=== PATIENT | female | born 1940 | race Two or more races ===

== ENCOUNTER 2024-08-24 21:35 | Inpatient (IN) | payer MEDICAID, SELFPAY ==
[2024-08-24 21:35] VITALS: BMI 26.6
[2024-08-24 22:24] VITALS: BP 168/76; PULSE 76; RESP 20; TEMP 36.6; O2SAT 96
--- NOTE | 2024-08-24 22:24 | PD.EDRME ---
Rapid Medical Screening Exam RME Arrival date/time: 08/24/24 21:35 Chief Complaint: Dizziness Time Seen by Provider: 08/24/24 21:53 Vital signs: Vital Signs Temperature 97.9 F 08/24/24 22:24 Pulse Rate 76 08/24/24 22:24 Respiratory Rate 20 08/24/24 22:24 Blood Pressure 168/76 H 08/24/24 22:24 Pulse Oximetry (%) 96 08/24/24 22:24 Oxygen Delivery Method Room Air 08/24/24 22:24 RME Narrative: 84-year-old female presents to the ED with left-sided headache, neck pain, dizziness, inability to walk due to the dizziness, as well as nausea and vomiting. I have greeted and performed a focused initial assessment of this patient. A comprehensive ED assessment and evaluation of the patient, analysis of all test results, and completion of the medical decision making process will be conducted by additional ED providers.
--- NOTE | 2024-08-24 22:37 | XR_ITS ---
Examination: PA lateral chest 2 views Technique: Upright PA lateral chest 2 views Exam date and time: August 24, 2024 at 1118 hrs. Indications: Left-sided headache neck pain dizziness today Findings: Opacity left base consistent with pneumonia Suspicious for small left pleural effusion Mild hyperexpansion Mild prominence cardiac contour Mild vascular congestion Moderate osteopenia Impression: Left base pneumonia Suspicious for small left pleural effusion
--- NOTE | 2024-08-24 22:37 | XR_ITS ---
Examination: CT brain head without contrast. 2-D sagittal coronal reconstructions Date and time of exam:August 24, 2024 11:05 PM Indications: Headache nausea vomiting beginning 2 days ago CTDI: vol (mGy):49 DLP: (mGycm):938 Technique: Multiple CT axial sections of the brain have been obtained, 5 mm slice thickness. Contrast has not been administered. 2-D sagittal, coronal reconstructions have been obtained Low dose protocols were performed. One or more of the following dose reduction techniques were used; automated exposure control, adjustment of the mA and/or KV according to patient size, use of iterative reconstruction technique. Findings: No significant ventricular enlargement. Low density in the right cerebellar hemisphere which appears old but clinical correlation advised Intra-axial or extra-axial hemorrhage density is not seen. No mass effect or midline shift Basal cisterns are not remarkable. Fourth ventricle is midline. Cranial vault intact. 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
--- NOTE | 2024-08-24 22:37 | EKG_ITS ---
[facility] Test Date: 2024-08-24 Pat Name: MARK KAUFMAN Department: Room: - Gender: Female Marketing Administrator: : 1940 Requested By: Miladys Guerrero Order Number: [id number] Reading MD: Miladys Guerrero Measurements Intervals Union Rate: 74 P: 51 VT: 192 QRS: 20 QRSD: 89 T: 51 QT: 405 QTc: 451 Interpretive Statements SINUS RHYTHM LOW QRS VOLTAGE IN PRECORDIAL LEADS [QRS DEFLECTION < 1.0 mV IN CHEST LEADS] Compared to ECG 11/19/2023 19:24:10 Low QRS voltage now present /store/S0/[id number]/ecg/[id number].pdf
[2024-08-24 23:23] LABS: Basophils % (Auto) 0 % (0-2.5); Eosinophils % (Auto) 0 % (0-10); Hematocrit 37.6 % (36.0-46.0); Hemoglobin 12.6 g/dL (12.0-16.0); Immature Granulocytes % (Auto) 1 % (0-0); Immature Granulocytes Auto 0.04 Thou/mm3 (0.00-0.00); Lymphocytes % (Auto) 12 % (10-50); Mean Corpuscular HGB Conc 33.5 g/dl (31.0-37.0); Mean Corpuscular Hemoglobin 29.1 pg (25.0-35.0); Mean Corpuscular Volume 87 fL (80-100); Monocytes # (Auto) 0.8 Thou/mm3 (0.0-0.8); Monocytes % (Auto) 10 % (0-12); Neutrophils # (Auto) 6.4 Thou/mm3 (1.8-7.7); Neutrophils % (Auto) 77 % (37-80); Nucleated Red Blood Cell % 0 /100 WBC (0); Platelet Count 237 Thou/mm3 (140-440); RDW Standard Deviation 41.8 fL (36.4-46.3); Red Blood Count 4.33 Miln/mm3 (4.00-5.20); White Blood Count 8.3 Thou/mm3 (3.6-11.0)
[2024-08-24 23:41] LABS: INR 1.1 (0.9-1.3); Partial Thromboplastin Time 26.6 Seconds (22.0-36.0); Prothrombin Time 11.6 Seconds (9.0-12.2)
[2024-08-24 23:47] LABS: Collection Type, Urine Clean Catch
[2024-08-24 23:50] LABS: B-Type Natriuretic Peptide 180 pg/mL (0-100)
[2024-08-25] VITALS (8 sets, daily range): BP systolic 145–179; BP diastolic 67–87; PULSE 77–93; RESP 16–20; TEMP 36.3–36.8; O2SAT 92–96
[2024-08-25 00:03] LABS: Bilirubin,Urine Negative (Negative); Blood,Urine Negative (Negative); Clarity,Urine Clear (Clear/Hazy); Color,Urine Lt-Yellow (Lt Yel-Yel); Glucose, Urine 3+ (Negative); Ketones,Urine Negative (Negative); Leukocyte Esterase,Urine Negative (Negative); Nitrite,Urine Negative (Negative); Protein,Urine Negative (Neg - Trace); RBC,Urine 2 /hpf (0-3); Specific Gravity,Urine 1.014 (1.001-1.035); Squamous Epithelial Cell,Urine < 1 /hpf (0-5); Urobilinogen,Urine Negative mg/dL (0.0-1.0); WBC,Urine 1 /hpf (0-5)
[2024-08-25 00:05] LABS: Alanine Aminotransferase 13 U/L (10-49); Albumin, Serum 4.6 gm/dL (3.4-4.8); Albumin/Globulin Ratio 1.8 (1.2-2.2); Alkaline Phosphatase 44 U/L (46-116); Anion Gap 8 (7-16); Aspartate Amino Transferase 18 U/L (0-34); BUN/Creatinine Ratio 10 Ratio (12-20); Blood Urea Nitrogen 6 mg/dL (9-23); Calcium 8.4 mg/dL (8.3-10.6); Calcium (Corrected) 8.4 mg/dL (8.5-10.1); Carbon Dioxide 24.2 mMol/L (20.0-31.0); Chloride 98 mMol/L (98-107); Creatinine (Component) 0.6 mg/dL (0.6-1.3); Estimated Creatinine Clearance 64.8 mL/min (>60); Globulin 2.5 gm/dL (2.3-3.5); Glucose 146 mg/dL (74-106); LDH (Lactate Dehydrogenase) 212 U/L (120-246); Magnesium 1.8 mg/dL (1.6-2.6); Osmolality,Calculated 261 (275-295); Potassium 3.9 mMol/L (3.4-5.1); Sodium 130 mMol/L (136-145); Total Protein 7.1 gm/dL (5.7-8.2); Troponin I < 0.020 ng/mL (0.0-0.045); eGFR > 60 See Note
--- NOTE | 2024-08-25 00:39 | PD.EDDIZZY ---
ED Dizzyness RME/HPI General Chief Complaint: Dizziness Stated Complaint: HEADACHE, DIZZINESS, N/V X 2DAYS Time Seen by Provider: 08/24/24 21:53 Arrival date/time: 08/24/24 21:35 Limitations: no limitations RME / HPI RME / HPI Narrative: 84-year-old female presents to the ED with left-sided headache, neck pain, dizziness, inability to walk due to the dizziness, as well as nausea and vomiting. I have greeted and performed a focused initial assessment of this patient. A comprehensive ED assessment and evaluation of the patient, analysis of all test results, and completion of the medical decision making process will be conducted by additional ED providers. Dr. An's Main ED Evaluation: 84yo female with a history of DM, HTN, HLD presents to the ED for a chief complaint of dizziness x 1 day. Patient states she started feeling dizzy at 2300 Saturday night after she showered. Patient states she went to sleep dizzy and woke up still having symptoms, reporting she is unable to ambulate normally, so she came in for evaluation. Daughter notes the patient has had difficulty talking. Patient endorses having 2-3 emetic episodes, a generalized headache, and bilateral lower extremity numbness below the knee. She denies any diarrhea, fever, chills or any other associated symptoms. Patient denies any history of similar symptoms. No known allergies. Related Data Home Medications ?Medication ?Instructions ?Recorded ?Confirmed lisinopril 40 mg tablet 40 mg PO QDAY 06/28/22 11/21/23 omeprazole 40 mg capsule,delayed 20 mg PO BID 06/28/22 11/21/23 release amlodipine 2.5 mg tablet 2.5 mg PO QDAY 11/21/23 11/21/23 aspirin 81 mg tablet,delayed 81 mg PO QDAY 11/21/23 11/21/23 release famotidine 20 mg tablet 20 mg PO QDAY 11/21/23 11/21/23 metformin 500 mg tablet 500 mg PO BID 11/21/23 11/21/23 metoprolol succinate 50 mg capsule 50 mg PO QDAY 11/21/23 11/21/23 sprinkle, ext. release 24 hr Allergies Allergy/AdvReac Type Severity Reaction Status Date / Time No Known Allergies Allergy Verified 11/19/23 17:17 Review of Systems Review of Systems Systems Reviewed: All systems reviewed, normal except as documented Past Medical History Past Medical History CARDIAC: Positive Hypercholesterolemia and Hypertension; Negative Cardiac Disorders or Congestive Heart Failure RESPIRATORY: Negative Chronic Obstructive Pulmonary Disease (COPD) or Asthma GASTROINTESTINAL: Positive Gastrointestinal Disorders (gastritis) GENITOURINARY: Negative Renal Disease ENT: Positive Cataracts ENDOCRINE: Positive Diabetes Mellitus Type 2; Negative Diabetes Mellitus Type 1 HEMATOLOGIC: Negative Sickle Cell Disease OTHER HISTORY: Negative Blood Transfusions Social History SMOKING STATUS: Never smoker SECOND HAND EXPOSURE: No SUBSTANCE USE: does not use ED Exam General Limitations: Present no limitations General appearance: Present alert and in no apparent distress Head Head exam: Present atraumatic Eye Eye exam: Present normal appearance, PERRL and EOMI ENT ENT exam: Present normal exam, normal oropharynx and mucous membranes moist Neck Neck exam: Present normal inspection, full ROM and trachea midline Chest Chest inspection: Present normal inspection and symmetric chest wall rise Respiratory Respiratory exam: Present normal lung sounds bilaterally Cardiovascular Cardiovascular exam: Present regular rate, normal rhythm and normal heart sounds Abdominal Exam Abdominal exam: Present soft and normal bowel sounds Extremities Exam Extremities exam: Present normal inspection and full ROM Back Exam Back exam: Present normal inspection and full ROM Neurological Exam Neurological exam: Present alert, oriented X3, CN II-XII intact and other (2 person assist when standing, appears to fall over towards her left side; normal seed pelleter bilaterally; no facial droop, no aphasia or dysphagia; no pronator drift) Expanded Neurological Exam Cerebellar function: Normal: finger to nose and heel to jackson Motor strength - LUE: 5/5 Motor strength - RUE: 5/5 Motor strength - LLE: 5/5 Motor strength - RLE: 5/5 Psychiatric Psychiatric exam: Present normal affect and normal mood Skin Skin exam: Present warm, dry, intact and normal color Course Course Course Narrative: CXR is ordered for determining the etiology of dizziness. Quality Measures none Orders Category Date Time Status Admit to Inpatient Status Routine Admission 08/25/24 01:38 Active Patient Condition Routine Admission 08/25/24 01:38 Ordered Activity as Tolerated Routine Care 08/25/24 01:38 Ordered EKG (ED ONLY) *Do not use* NOW Care 08/24/24 22:37 Completed NPO NOW Care 08/25/24 01:38 Active Notify provider NEEDED Care 08/25/24 01:38 Active Diet NPO (NOW) Diet 08/25/24 01:[address] head/brain wo con Stat Exams 08/24/24 22:37 Completed EKG (ED Only) Stat Exams 08/24/24 22:37 Draft XR chest 2V Stat Exams 08/24/24 22:37 Completed B-Type Natriuretic Peptide Stat Lab 08/24/24 22:54 Completed Basic Metabolic Panel AM DRAW Lab 08/25/24 05:00 Ordered Basic Metabolic Panel AM DRAW Lab 08/26/24 05:00 Ordered Basic Metabolic Panel AM DRAW Lab 08/27/24 05:00 Ordered CBC AM DRAW Lab 08/25/24 05:00 Ordered CBC AM DRAW Lab 08/26/24 05:00 Ordered CBC AM DRAW Lab 08/27/24 05:00 Ordered CBC Stat Lab 08/24/24 22:54 Completed Comprehensive Metabolic Panel Stat Lab 08/24/24 22:54 Completed LDH (Lactate Dehydrogenase) Stat Lab 08/24/24 22:54 Completed Magnesium Stat Lab 08/24/24 22:54 Completed Partial Thromboplastin Time Stat Lab 08/24/24 22:54 Completed Prothrombin Time with INR Stat Lab 08/24/24 22:54 Completed Troponin I Stat Lab 08/24/24 22:54 Completed Urinalysis Stat Lab 08/24/24 23:44 Completed Heparin Inj Med 08/25/24 06:00 Ordered 5,000 unit SC Q8HR Sodium Chloride 0.9% 1000 ml [Ns] 1,000 ml Med 08/25/24 01:45 Ordered IV 75 mls/hr Code Status Routine Oth 08/25/24 01:37 Ordered Vital Signs Vital signs: Vital Signs Temperature 97.9 F 08/24/24 22:24 Pulse Rate 76 08/24/24 22:24 Respiratory Rate 20 08/24/24 22:24 Blood Pressure 168/76 H 08/24/24 22:24 Pulse Oximetry (%) 96 08/24/24 22:24 Oxygen Delivery Method Room Air 08/24/24 22:24 Dizziness MDM Narrative MDM Narrative:: Scribe Attestation: 08/25/24 - Ramona Perez am scribing for and in the presence of Dr. An. 0135: Discussed case with Dr. Mckeon from Hospitalist service regarding admission. Discussed patients ED course, exam findings, labs, and radiology results. The Hospitalist agrees to accept the patient for admission. At this time, Teleneurology consult completed. Dr. Mckeon made aware. Patient data External records reviewed:: [facility] previous records (Per chart review, patient was admitted here on 11/19/23 for acute febrile illness.) Clinical information provided by:: patient Social determinants that could affect healthcare access:: none Patient has the following chronic illnesses:: DM, HTN, HLD How is presenting disease/condition affected by chronic disease/condition?: exacerbated by Evaluation data The following diagnostics were reviewed and interpreted by me:: lab results, radiology exam(s) and EKG tracing(s) Lab and/or radiology exams considered but not ordered:: none Interpretation Summary: CBC is normal, Sodium is 130, Troponin is normal, BNP is 180, UA is unremarkable, according to my interpretation. EKG done at 2249, NSR, rate of 74, low voltage, normal intervals, normal axis, no acute ST or T wave changes, no STEMI, according to my interpretation. [facility] Report Signed Patient: MARK KAUFMAN Record#: [id number] Birthdate: 1940 Age/Sex: 84 / F Location: [facility] Attending Dr: Ordering Physician: Miladys Granados PA-C Date of Service: 08/24/24 Procedure(s): XR chest 2V Accession Number(s): [id number] cc: Lobo Everett MD; Miladys Granados PA-C; Temporary Provider,ED ~ Examination: PA lateral chest 2 views Technique: Upright PA lateral chest 2 views Exam date and time: August 24, 2024 at 1118 hrs. Indications: Left-sided headache neck pain dizziness today Findings: Opacity left base consistent with pneumonia Suspicious for small left pleural effusion Mild hyperexpansion Mild prominence cardiac contour Mild vascular congestion Moderate osteopenia Impression: Left base pneumonia Suspicious for small left pleural effusion Dictated By: Lobo Everett MD Signed By: <Electronically signed by Lobo Everett MD in OV> 08/24/24 0859 [facility] Report Signed Patient: MARK KAUFMAN Record#: [id number] Birthdate: 1940 Age/Sex: 84 / F Location: [facility] Attending Dr: Ordering Physician: Miladys Granados PA-C Date of Service: 08/24/24 Procedure(s): CT head/brain wo con Accession Number(s): [id number] cc: Lobo Everett MD; Miladys Granados PA-C; Temporary Provider,ED ~ Examination: CT brain head without contrast. 2-D sagittal coronal reconstructions Date and time of exam:August 24, 2024 11:05 PM Indications: Headache nausea vomiting beginning 2 days ago CTDI: vol (mGy):49 DLP: (mGycm):938 Technique: Multiple CT axial sections of the brain have been obtained, 5 mm slice thickness. Contrast has not been administered. 2-D sagittal, coronal reconstructions have been obtained Low dose protocols were performed. One or more of the following dose reduction techniques were used; automated exposure control, adjustment of the mA and/or KV according to patient size, use of iterative reconstruction technique. Findings: No significant ventricular enlargement. Low density in the right cerebellar hemisphere which appears old but clinical correlation advised Intra-axial or extra-axial hemorrhage density is not seen. No mass effect or midline shift Basal cisterns are not remarkable. Fourth ventricle is midline. Cranial vault intact. 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 Dictated By: Lobo Everett MD Signed By: <Electronically signed by Lobo Everett MD in OV> 08/24/24 0816 Medications / Prescriptions Medications or Prescriptions considered but not ordered:: none Medication administrations:: Medication Administration History Heparin Sodium (Porcine) (Heparin Sod Inj 5000 Unit/Ml Vial) 5,000 unit SC Q8HR BOBBY Stop: 09/08/24 05:59 Sodium Chloride (Ns) 1,000 mls @ 75 mls/hr IV .[id number] BOBBY Stop: 09/24/24 01:44 see above Consultations Consultation(s) initiated? (list below): Yes Diagnosis Dizziness Differential Diagnosis: other (CVA, TIA, vertigo, dehydration, electrolyte abnormality) Most likely diagnosis given after review of the tests above:: see clinical impression below Admission Indicated Admission indicated?: indicated Admission Request Was there a request for admission?: Yes Admission Attestation Admission request attestation: Discussed case with [] from Hospitalist service regarding admission. Discussed patients ED course, exam findings, labs, and radiology results. The Hospitalist [agrees,declines] to accept the patient for admission. Disposition Plan Disposition Plan: Admit Critical Care Time Critical Care Time Critical Care Time: Yes Total Critical Care Time (min.): 35 Attestation: The high probability of sudden, clinically significant deterioration in the patient?s condition required the highest level of my preparedness to intervene urgently. The services I provided to this patient were to treat and/or prevent clinically significant deterioration. Services included the following: chart data review, reviewing nursing notes and/or old charts, documentation time, client service consultant collaboration regarding findings and treatment options, medication orders and management, direct patient care, vital sign assessments and ordering, interpreting and reviewing diagnostic studies and lab tests. Aggregate critical care time includes only time during which I was engaged in work directly related to the patient?s care, as described above, whether at bedside or elsewhere in the Emergency Department. It did not include time spent performing other reported procedures or the services of residents, students, nurses or physician assistants. Discharge Plan Plan Patient Disposition: Admit Acute Care w/in Hospital Disposition Comment: Admitted to Dr. Mckeon Prescriptions/Referrals Prescriptions/Med Rec: No Action omeprazole 40 mg capsule,delayed release(DR/EC) 20 mg PO BID lisinopril 40 mg tablet 40 mg PO QDAY metformin 500 mg Tablet 500 mg PO BID amlodipine 2.5 mg Tablet 2.5 mg PO QDAY aspirin 81 mg Tablet,Delayed Release (Dr/Ec) 81 mg PO QDAY famotidine 20 mg Tablet 20 mg PO QDAY metoprolol succinate 50 mg Capsule,Sprinkle,Er 24hr 50 mg PO QDAY Referrals: Temporary Provider,ED [Primary Care Provider] - In 1 week Problem List Clinical Impression: Dizziness, Inability to walk, Ataxia Patient/Caregiver Discharge Instructions Print Language: Maori Stand Alone Forms: Kathi Award Info., Patient Portal Info Letter
--- NOTE | 2024-08-25 01:27 | PD.TNEURO ---
Tele Neuro Consultation Consultation Date 08/25/24 Most Recent Vital Signs Last Vital Signs Temp 98 F 08/25/24 00:34 Pulse 86 08/25/24 00:34 Resp 18 08/25/24 00:34 BP 179/77 H 08/25/24 00:34 Pulse Ox 96 08/25/24 00:34 O2 Del Method Room Air 08/25/24 00:34 Laboratory-Coagulation Panel PT 11.6 Seconds (9.0-12.2) 08/24/24 22:54 INR 1.1 (0.9-1.3) 08/24/24 22:54 APTT 26.6 Seconds (22.0-36.0) 08/24/24 22:54 Consultation Narrative [facility] TeleNeurology Consult Services Stat Consult Patient Name:???Gloria Taylor Date of :???1940 Identification Number:??? Date of Service:???08/25/2024 00:46:55 Diagnosis:?R51.9 - Headache, unspecified Impression 84 year old female with PMH of HTN, DM HLD presents with new onset severe headache, dizziness and gait instability since yesterday CT head showing chronic ischemic infarct. I would recommend ischemic stroke workup with MRI of the brain without contrast, 2D echocardiogram with bubble study to evaluate for PFO, vessel imaging with CTA head and neck telemetry for 24 hours to detect A-fib, start Lipitor 80 mg p.o. and check fasting LDL and A1c Further management recommendations after stroke workup is complete. Recommendations: Our recommendations are outlined below. Diagnostic Studies :MRI head without contrast CTA head and neck with contrast Laboratory Studies :Lipid panel I orderedHemoglobin A1c TSH Nursing Recommendations :IV Fluids, avoid dextrose containing fluids, Maintain euglycemia Neuro checks q4 hrs x 24 hrs and then per shift Head of bed 30 degrees Continue with Telemetry Consultations :Recommend Speech therapy if failed dysphagia screen Physical therapy/Occupational therapy DVT Prophylaxis :Choice of Primary Team Disposition :Neurology will follow Advanced Imaging: Advanced Imaging Deferred because: Non-disabling symptoms as verified by the patient; no cortical signs so not consistent with LVO Metrics: Dispatch Time: 08/25/2024 00:44:00 Callback Response Time: 08/25/2024 00:47:10 Primary Provider Notified of Diagnostic Impression and Management Plan on: 08/25/2024 01:17:31 CT HEAD: As Per Radiologist CT Head Showed No Acute Hemorrhage or Acute Core Infarct Chief Complaint: headache History of Present Illness:Patient is a 84 year old Female. 84F Complaint: Pt has a headache with dizziness lkwt: 2300 imaging: CT H Yestrday she had a spell of dizziness and went to another ER. She continues to feel dizzy today and has a severe headache, global, feels unsteady. She also feels numbness in both legs. Past Medical History: ?Hypertension Medications: No Anticoagulant use? No Antiplatelet use Reviewed EMR for current medications Allergies:? Reviewed Social History: Drug Use: No Family History: There is no family history of premature cerebrovascular disease pertinent to this consultation ROS : 14 Points Review of Systems was performed and was negative except mentioned in HPI. Past Surgical History: There Is No Surgical History Contributory To Today?s Visit Examination: BP(156/78),?Pulse(81), 1A: Level of Consciousness - Alert; keenly responsive?+ 0 1B: Ask Month and Age - Both Questions Right?+ 0 1C: Blink Eyes & Squeeze Hands - Performs Both Tasks?+ 0 2: Test Horizontal Extraocular Movements - Normal?+ 0 3: Test Visual De [place] Santos - No Visual Loss?+ 0 4: Test Facial Palsy (Use Grimace if Obtunded) - Normal symmetry?+ 0 5A: Test Left Arm Motor Drift - No Drift for 10 Seconds?+ 0 5B: Test Right Arm Motor Drift - No Drift for 10 Seconds?+ 0 6A: Test Left Leg Motor Drift - No Drift for 5 Seconds?+ 0 6B: Test Right Leg Motor Drift - No Drift for 5 Seconds?+ 0 7: Test Limb Ataxia (FNF/Heel-Elkins) - No Ataxia?+ 0 8: Test Sensation - Normal; No sensory loss?+ 0 9: Test Language/Aphasia - Normal; No aphasia?+ 0 10: Test Dysarthria - Normal?+ 0 11: Test Extinction/Inattention - No abnormality?+ 0 NIHSS Score:?0 Spoke with :?ER team This consult was conducted in real time using interactive audio and video technology. Patient was informed of the technology being used for this visit and agreed to proceed. Patient located in hospital and provider located at home/office setting. Patient is being evaluated for possible acute neurologic impairment and high probability of imminent or life - threatening deterioration.I spent total of 35 minutes providing care to this patient, including time for face to face visit via telemedicine, review of medical records, imaging studies and discussion of findings with providers, the patient and / or family. Dr Kuldeep Kelly [facility] For Inpatient follow-up with [facility] physician please call [facility] at . As we are not an outpatient service for any post hospital discharge needs please contact the hospital for assistance. If you have any questions for the [facility] physicians or need to reconsult for clinical or diagnostic changes please contact us via [facility] at .
--- NOTE | 2024-08-25 01:39 | XR_ITS ---
Examination: MRI brain without intravenous contrast Date and time of exam: August 25, 2024 1023 hours INDICATIONS: Pain involving the back of the head beginning 2 days ago COMPARISON: June 28, 2022 Technique: Multiple axial and sagittal images of the brain obtained. Siemens high-resolution 1.5 Loulou short bore scanners utilized. Sagittal sections, T1-weighted, TR 500, TE 14, are performed. Axial sections proton-density and T2-weighted have been obtained. Inversion recovery axial images, TR 9, 260, TE 111, TI 2500. Diffusion weighted images, axial sections, TR 4800, TE 128, B value 1000 Axial sections, ADC map, TR 4800, TE 128 Findings: Enlargement of the sella turcica is not present. The optic chiasm and infundibular are not remarkable. Prepontine and interpeduncular cisterns are not enlarged. There is no localized enlargement of the medulla or gabriel. Fourth ventricle and cerebellar tonsils appear normal in position. No subacute area of hemorrhage density is seen. Mass in the cerebellopontine angle region is not evident. Globes symmetrical. Orbital musculature including medial lateral rectus muscles do not exhibit abnormality. Diffusion-weighted images demonstrate large focus restricted diffusion in the right cerebellar hemisphere and right vermis Increased white matter signal right cerebellar hemisphere Mass effect upon the ventricular system is not identified. Impression: Large acute infarcts in the right cerebellar hemisphere
--- NOTE | 2024-08-25 01:40 | XR_ITS ---
Examination: Carotid arterial duplex scan, ultrasound. Date and time of exam: August 25, 2024 0415 hrs. Indications: Episodes of weakness and dizziness beginning yesterday Technique: Multiple sonographic images have been obtained of the carotid arteries and vertebral arteries, B-mode/grayscale imaging and Doppler spectral analysis and color flow Peak systolic and diastolic velocities have been recorded. Systolic diastolic ratios have been calculated. Findings: Right peak systolic velocities: Distal internal carotid artery peak systolic velocity is 0.7 M/sec Proximal internal carotid artery peak systolic velocity is 0.6 M/sec Carotid bifurcation peak systolic velocity is 0.8 M/sec External carotid artery peak systolic velocity is 0.7 M/sec Vertebral artery flow is antegrade. Left peak systolic velocities: Distal internal carotid artery peak systolic velocity is 0.5 M/sec Proximal internal carotid artery peak systolic velocity is 0.8 M/sec Carotid bifurcation peak systolic velocity is 0.7 M/sec External carotid artery peak systolic velocity is 0.7 M/sec Vertebral artery flow is antegrade Doppler waveform analysis demonstrates no spectral broadening Impression: Right internal carotid artery demonstrates 0-10% stenosis. Left internal carotid artery demonstrates 0-10% stenosis.
--- NOTE | 2024-08-25 02:20 | ESHP_ITS ---
Documentation for date of: 08/25/24 HPI History of Present Illness Chief complaint: Dizziness History of present illness: The patient is a 84-year-old female with a previous medical history of hypertension, diabetes, hyperlipidemia, GERD who came in on 08/24/24 due to dizziness, headache, inability to ambulate on her own, inability to stand. Symptoms started on Saturday at approximately 23:00 PM Saturday when she was taking a shower. Patient went to sleep and woke up with symptoms. Patient vomited 2-3 times and reports headache. She denies falls and traumas to the head. ED course: Initial vitals blood pressure 168/76, heart rate 76, febrile, saturating well on room air. 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 Labs: WBC count 8.3, hemoglobin 12.6, platelets 237, INR 1.1, sodium 130, potassium 3.9, BUN 6, creatinine 0.6, glucose 146, troponin I negative, BNP 180. UA was negative for signs of UTI, 3+ glucose. EKG showed sinus rhythm. Chest x-ray showed left base opacity, mild vascular congestion. Patient was admitted for stroke rule out. Social history: not a smoker, does not have a history of drug use Home medications: amlodipine, aspirine, famotidine, lisinopril, metformin, metoprolol, omeprazole. Review of Systems Review of Systems Systems Reviewed: All systems reviewed, normal except as documented Past Medical History Past Medical History CARDIAC: Positive Hypercholesterolemia and Hypertension; Negative Cardiac Disorders or Congestive Heart Failure RESPIRATORY: Negative Chronic Obstructive Pulmonary Disease (COPD) or Asthma GASTROINTESTINAL: Positive Gastrointestinal Disorders (gastritis) GENITOURINARY: Negative Renal Disease ENT: Positive Cataracts ENDOCRINE: Positive Diabetes Mellitus Type 2; Negative Diabetes Mellitus Type 1 HEMATOLOGIC: Negative Sickle Cell Disease OTHER HISTORY: Negative Blood Transfusions Social History SMOKING STATUS: Never smoker SECOND HAND EXPOSURE: No SUBSTANCE USE: does not use Exam Vital Signs Temp Pulse Resp BP Pulse Ox O2 Del Method 98 F 86 18 179/77 H 96 Room Air 08/25/24 00:34 08/25/24 00:34 08/25/24 00:34 08/25/24 00:34 08/25/24 00:34 08/25/24 00:34 Narrative Exam Physical Exam General: Awake and in no acute distress. Sleeping in the bed, easily arousable. HEENT: Normocephalic, atraumatic, mucous membranes moist. Heart: Regular rate and rhythm, no murmurs. Lungs: Clear to auscultation with no wheezing or crackles. Abdomen: Soft, nondistended, nontender, positive bowel sounds. ?No guarding or rebound tenderness. Neurologic: Alert and oriented x3, no gross neurological deficit, and patient able to move all 4 extremities. Extremities: No edema. Skin: No rash or ecchymoses. Results: Labs 08/24/24 22:54 08/24/24 22:54 Labs: Short CBC 08/24/24 Range/Units 22:54 WBC 8.3 (3.6-11.0) Thou/mm3 Hgb 12.6 (12.0-16.0) g/dL Hct 37.6 (36.0-46.0) % Plt Count 237 (140-440) Thou/mm3 BMP 08/24/24 22:54 Sodium 130 L Potassium 3.9 Chloride 98 Carbon Dioxide 24.2 BUN 6 L Creatinine 0.6 Glucose 146 H Calcium 8.4 Cardiac Enzymes 08/24/24 Range/Units 22:54 Troponin I < 0.020 (0.0-0.045) ng/mL Liver Function 08/24/24 Range/Units 22:54 Total Bilirubin 1.0 (0.3-1.2) mg/dL AST 18 (0-34) U/L ALT 13 (10-49) U/L Alkaline Phosphatase 44 L (46-116) U/L Albumin 4.6 (3.4-4.8) gm/dL Urine 08/24/24 Range/Units 23:44 Urine Color Lt-Yellow (Lt Yel-Yel) Urine Clarity Clear (Clear/Hazy) Urine pH 7.0 (5.0-7.0) Ur Specific [place] 1.014 (1.001-1.035) Urine Protein Negative (Neg - Trace) Urine Glucose (UA) 3+ A (Negative) Quality Measures Quality Measures VTE prophylaxis Advance care planning discussed with:: child Medications Home Medications and Allergies Home Medications ?Medication ?Instructions ?Recorded ?Confirmed ?Type lisinopril 40 mg tablet 40 mg PO QDAY 06/28/2208/25 History omeprazole 40 mg capsule,delayed 20 mg PO BID 06/28/22 08/25/24 History release amlodipine 2.5 mg tablet 2.5 mg PO QDAY 11/21/2308/11 History aspirin 81 mg tablet,delayed 81 mg PO QDAY 11/21/23 History release famotidine 20 mg tablet 20 mg PO QDAY 11/21/2308/25 History metformin 500 mg tablet 500 mg PO BID 11/21/2308/25 History metoprolol succinate 50 mg capsule 50 mg PO QDAY 11/2008/25/24 History sprinkle, ext. release 24 hr Allergies Allergy/AdvReac Type Severity Reaction Status Date / Time No Known Allergies Allergy Verified 11/19/23 17:17 Visit Medications Aspirin (Aspirin Ec 81 Mg Tabec) 81 mg PO QDAY [facility] Stop: 09/24/24 08:59 Atorvastatin Calcium (Atorvastatin Calcium 20 Mg Tablet) 80 mg PO HS [facility] Stop: 09/24/24 20:59 Dextrose (Dextrose 50%-Water Inj 50 Ml Syringe) 25 ml IV Q15MIN PRN PRN Reason: BG 50-70 responsive npo pt Stop: 09/24/24 01:40 Dextrose (Dextrose 50%-Water Inj 50 Ml Syringe) 50 ml IV Q15MIN PRN PRN Reason: BG <50 OR BG <70 & pt unresponsive Stop: 09/24/24 01:40 Glucagon (Glucagon Inj 1 Mg Vial) 1 mg IM Q15MIN PRN PRN Reason: BG <70, and no IV access Heparin Sodium (Porcine) (Heparin Sod Inj 5000 Unit/Ml Vial) 5,000 unit SC Q8HR [facility] Stop: 09/08/24 05:59 Sodium Chloride (Ns) 1,000 mls @ 75 mls/hr IV .[id number] [facility] Stop: 09/24/24 01:44 Insulin Human Lispro (Insulin Lispro (Admelog) 1 Unit/0.01 Ml Unit) 0 unit SC [facility]; Protocol Stop: 09/24/24 07:29 Lisinopril (Lisinopril 20 Mg Tablet) 40 mg PO QDAY [facility] Stop: 09/24/24 08:59 Assessment & Plan Plan The patient is a 84-year-old female with a previous medical history of hypertension, diabetes, hyperlipidemia, GERD who came in on 08/24/24 due to dizziness, headache, inability to ambulate on her own, inability to stand. Patient was admitted for stroke rule out. #Stroke rule out Patient is out of the time window for thrombolysis. Reports feeling dizzy and headache. Symptoms could be indicative of vertebrobasilar stroke. CT head showed multiple right cerebellar hemisphere infarcts. 08/25/24: Initial NIHSS is 0. Plan: - MRI brain - Speech therapy eval - Physical therapy eval - Swallow screen - Atorvastatin 80 mg qday - Maintain euglycemia and euthermia - Neurology consult - A1c, TSH, lipid panel - Neuro checks q4hr - Telemetry - BP control - Npo until passes swallow screen - Echo bubble study - Carotid doppler US - Normal saline at 75 ml/hr #Hypertension #Hyperlipidemia Plan: - Resumed home lisinopril - Atorvastatin 80 mg qday #Type 2 diabetes Plan: - Insulin sliding scale - Hypoglycemia protocol #History of GERD - Pantoprazole 40 mg qday Health maintenance: FEN: NPO until passes swallow screen DVT prophylaxis: Heparin sc GI prophylaxis: Pantoprazole 40 mg Dispo: Telemetry CODE STATUS: Full code Plan of care discussed with attending Dr. Mckeon. Irene Crawford MD, PGY 1. Attending Provider Attestation/Addendum Pt was evaluated and plan formulated together with the housestaff team. I have reviewed the residents note above and agree with most of its content. Please refer to the residents note for additional details.
[2024-08-25] MEDS: SODIUM CHLORIDE 0.9% 1000 ML 1,000 ML 75 ML IV ×2 (03:08→20:45)
[2024-08-25 05:54] LABS: Basophils % (Auto) 0 % (0-2.5); Eosinophils # (Auto) 0.1 Thou/mm3 (0.0-0.5); Eosinophils % (Auto) 1 % (0-10); Hematocrit 34.9 % (36.0-46.0); Hemoglobin 11.9 g/dL (12.0-16.0); Immature Granulocytes % (Auto) 0 % (0-0); Immature Granulocytes Auto 0.02 Thou/mm3 (0.00-0.00); Lymphocytes # (Auto) 1.5 Thou/mm3 (1.0-4.8); Lymphocytes % (Auto) 20 % (10-50); Mean Corpuscular HGB Conc 34.1 g/dl (31.0-37.0); Mean Corpuscular Hemoglobin 28.9 pg (25.0-35.0); Mean Corpuscular Volume 85 fL (80-100); Monocytes # (Auto) 0.7 Thou/mm3 (0.0-0.8); Monocytes % (Auto) 9 % (0-12); Neutrophils # (Auto) 5.2 Thou/mm3 (1.8-7.7); Neutrophils % (Auto) 70 % (37-80); Nucleated Red Blood Cell % 0 /100 WBC (0); Platelet Count 226 Thou/mm3 (140-440); RDW Standard Deviation 41.5 fL (36.4-46.3); Red Blood Count 4.12 Miln/mm3 (4.00-5.20); White Blood Count 7.4 Thou/mm3 (3.6-11.0)
[2024-08-25] MEDS: HEPARIN SOD INJ 5000 UNIT/ML VIAL SC (05:56)
[2024-08-25 06:16] LABS: Glucose Estimated Average 131 mg/dL (80-131); Hemoglobin A1C 6.2 % Hgb (4.8-6.0)
[2024-08-25 06:19] LABS: Anion Gap 8 (7-16); BUN/Creatinine Ratio 10 Ratio (12-20); Blood Urea Nitrogen 5 mg/dL (9-23); Calcium 8.4 mg/dL (8.3-10.6); Carbon Dioxide 23.8 mMol/L (20.0-31.0); Cardiac Risk Estimate 3.3 RATIO (3.7-5.6); Chloride 101 mMol/L (98-107); Cholesterol 187 mg/dL (132-200); Creatinine (Component) 0.5 mg/dL (0.6-1.3); Estimated Creatinine Clearance 69.7 mL/min (>60); Glucose 127 mg/dL (74-106); HDL Cholesterol 57 mg/dL (40-60); LDL Cholesterol,Calculated 117 mg/dL (0-130); Osmolality,Calculated 265 (275-295); Potassium 3.6 mMol/L (3.4-5.1); Sodium 133 mMol/L (136-145); Triglycerides 67 mg/dL (30-150); eGFR > 60 See Note
--- NOTE | 2024-08-25 06:26 | PRELIM_ITS ---
Ultrasound carotid. August 25, 2024 at 0415 hours Clinical history: Cerebrovascular accident. Comparison: No prior study is available for comparison. Findings: Sawyer scale, color flow and spectral Doppler evaluation of the carotid and vertebral arteries were performed bilaterally. Right: The common carotid, external/internal carotid and vertebral arteries demonstrate normal color flow and spectral profile. There are no focal stenotic plaques or vessel wall calcification. Normal antegrade flow is noted in the vertebral artery. Left: The common carotid, external/internal carotid and vertebral arteries demonstrate normal color flow and spectral profile. There are no focal stenotic plaques or vessel wall calcification. Normal antegrade flow is noted in the vertebral artery. Doppler Profile: Vessel Right (cm/s) Left (cm/s) ICA (max) 0.96 0.78 CCA (distal) 0.60 0.70 ICA/CCA Ratio 1.6 1.1 Impression: No hemodynamically significant carotid artery stenosis bilaterally. Normal antegrade flow in the vertebral arteries bilaterally. Report Electronically Signed By: Tejal Joseph 08/25/2024 6:25:18 AM [EST]
--- NOTE | 2024-08-25 07:52 | XR_ITS ---
Examination: CTA carotids with intravenous contrast CTA brain, head with intravenous contrast. 2-D sagittal, coronal reconstructions. 3-D reconstructions. Exam date and time: August 25, 2024 1050 hours INDICATIONS: Dizziness episodes beginning yesterday, acute infarcts in the right cerebellar hemisphere on brain MRI this morning CTDI: vol (mGy) 18.7 DLP: (mGycm) 423 Technique: Multiple CTA axial brain, head carotid images post intravenous contrast injection 75 cc, [id number]. 2-D sagittal, coronal reconstructions. 3-D reconstructions, 3-D post processing including vascular maximum intensity projection images. Low dose protocols were performed. One or more of the following dose reduction techniques were used; automated exposure control, adjustment of the mA and/or KV according to patient size, use of iterative reconstruction technique. Findings: No significant common carotid carotid bifurcation or internal carotid artery stenoses Codominant vertebral arteries with no critical stenoses Intracranial vertebral arteries basilar artery fill 80% plus stenosis right posterior cerebral artery junction P1 P2 segments Middle cerebral anterior cerebral arteries demonstrate no large vessel occlusions IMPRESSION: No significant neck arterial stenoses No cerebral large vessel arterial occlusions 80% plus stenosis right posterior cerebral artery, junction P1 P2 segments
[2024-08-25] MEDS: Lisinopril 20 MG TABLET 40 MG PO (08:01)
[2024-08-25] MEDS: ASPIRIN EC 81 MG TABEC PO (08:01)
[2024-08-25] MEDS: PANTOPRAZOLE INJ 40 MG VIAL IV (08:01)
--- NOTE | 2024-08-25 09:38 | PCS.ST ---
assisted [employer] for swallow eval
--- NOTE | 2024-08-25 11:38 | ESCONSULT_ITS ---
HPI Data of Consult Requesting Physician: Zachery aTlbot DO Admitting Provider: Brian Mckeon MD Attending Provider: Zachery Talbot DO Primary Care Provider: Jan Valadez PA-C Consult Narrative History of present illness: 84-year-old female with a previous medical history of hypertension, diabetes, hyperlipidemia, GERD who was admitted to [facility] for stroke rule out. Neurology was consulted. Per patient daughter at the bedside she stated that symptoms started on Saturday night around 11 PM after she took a shower and started to present dizziness, headache and inability to ambulate on her own, inability to stand. She denies falls and traumas to the head. She endorses chronic tinnitus bilateral. The daughter stated that she was brought up to [facility] and they prescribed antiemetics Tylenol and PPIs and was discharged home from the ER and they decided to come to [facility] because of severe nausea vomiting and dizziness that did not resolve. ED course: Initial vitals blood pressure 168/76, heart rate 76, Stroke alert was called, NIHSS was 0, head Labs: WBC count 8.3, hemoglobin 12.6, platelets 237, INR 1.1, sodium 130, potassium 3.9, BUN 6, creatinine 0.6, glucose 146. Imaging: Head CT showed old upper infarct in the right cerebral large hemisphere, negative for acute hemorrhage, midline shift or mass effect. 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 Carotid Doppler ultrasound right and left internal carotids with 0-10% stenosis. Brain MRI showed large acute infarct in the right cerebellar hemisphere. ROS: Tinnitus, dizziness, nausea, vomiting Past medical history: Hypertension, GERD, diabetes Past surgical history: Markable Family history: Unremarkable Social history: Used to smoke occasionally when she was younger and used to drink alcohol socially Travel history: None Allergies: No known allergies cc:: cc: Zachery Talbot DO Review of Systems Review of Systems Systems Reviewed: All systems reviewed, normal except as documented Exam Vital Signs Temp Pulse Resp BP Pulse Ox O2 Del Method 97.4 F 79 17 145/67 H 95 Room Air 08/25/24 08:00 08/25/24 08:01 08/25/24 08:00 08/25/24 08:01 08/25/24 08:00 08/25/24 08:00 Narrative Exam General: No acute distress, well appearing, alert, interactive. HEENT: NC/AT, PERRL, EOMI, Good conjugate gaze, moist mucous membranes, oropharynx clear. Neck: Supple, No masses, No adenopathy, carotid pulse 2+ bilaterally without bruits, No JVD, normal range of motion. Chest: Symmetrical, atraumatic, and with equal expansion , Nontender on palpation no deformity and no crepitus. CVS: S1 and S2 present, Regular rate and rhythm, No murmurs, rubs or gallops perceived during auscultation. Lungs: Normal respiratory effort, CTAB, no wheezing, rhonchi or rales perceived during auscultation, No intercostal or subcostal retraction. Abdomen : Soft, no tenderness to palpation, no guarding ,no rebound, +BS, no organomegaly. Extremities: No edema, warm well perfused, normal tone and ROM, strength and sensation intact, cap refill less than 2, +2 dp equal bilaterally, able to move all 4 extremities spontaneously. Skin: Intact, no rashes, no lesions, no erythema or jaundice noted Neuro: AOx3, cranial nerves II through XII intact, reflex symmetric and sensation normal, no focal neurologic deficits noted, no dysmetria noted in [id number] test, gait: Not tested GCS 15, able to move all 4 extremities spontaneously, strength on bilateral upper lower extremities 5/5 Psych: Appropriate mood and affect. Results Labs 08/27/24 04:21 08/26/24 05:10 Labs: Short CBC 08/24/24 08/25/24 Range/Units 22:54 04:45 WBC 8.3 7.4 (3.6-11.0) Thou/mm3 Hgb 12.6 11.9 L (12.0-16.0) g/dL Hct 37.6 34.9 L (36.0-46.0) % Plt Count 237 226 (140-440) Thou/mm3 BMP 08/24/24 08/25/24 22:54 04:45 Sodium 130 L 133 L Potassium 3.9 3.6 Chloride 98 101 Carbon Dioxide 24.2 23.8 BUN 6 L 5 L Creatinine 0.6 0.5 L Glucose 146 H 127 H Calcium 8.4 8.4 Cardiac Enzymes 08/24/24 Range/Units 22:54 Troponin I < 0.020 (0.0-0.045) ng/mL Liver Function 08/24/24 Range/Units 22:54 Total Bilirubin 1.0 (0.3-1.2) mg/dL AST 18 (0-34) U/L ALT 13 (10-49) U/L Alkaline Phosphatase 44 L (46-116) U/L Albumin 4.6 (3.4-4.8) gm/dL Urine 08/24/24 Range/Units 23:44 Urine Color Lt-Yellow (Lt Yel-Yel) Urine Clarity Clear (Clear/Hazy) Urine pH 7.0 (5.0-7.0) Ur Specific [place] 1.014 (1.001-1.035) Urine Protein Negative (Neg - Trace) Urine Glucose (UA) 3+ A (Negative) Quality Measures Quality Measures VTE prophylaxis Advance care planning discussed with:: child Medications Home Medications and Allergies Home Medications ?Medication ?Instructions ?Recorded ?Confirmed ?Type lisinopril 40 mg tablet 40 mg PO QDAY 06/28/2208/25 History omeprazole 40 mg capsule,delayed 20 mg PO BID 06/28/22 08/25/24 History release amlodipine 2.5 mg tablet 2.5 mg PO QDAY 11/21/2308/11 History aspirin 81 mg tablet,delayed 81 mg PO QDAY 11/21/23 History release famotidine 20 mg tablet 20 mg PO QDAY 11/21/2308/25 History metformin 500 mg tablet 500 mg PO BID 11/21/2308/25 History metoprolol succinate 50 mg capsule 50 mg PO QDAY 11/2008/25/24 History sprinkle, ext. release 24 hr Allergies Allergy/AdvReac Type Severity Reaction Status Date / Time No Known Allergies Allergy Verified 11/19/23 17:17 Visit Medications Aspirin (Aspirin Ec 81 Mg Tabec) 81 mg PO QDAY [facility] Stop: 09/24/24 08:59 Last Admin: 08/25/24 08:01 Dose: 81 mg Atorvastatin Calcium (Atorvastatin Calcium 20 Mg Tablet) 80 mg PO HS [facility] Stop: 09/24/24 20:59 Dextrose (Dextrose 50%-Water Inj 50 Ml Syringe) 25 ml IV Q15MIN PRN PRN Reason: BG 50-70 responsive npo pt Stop: 09/24/24 01:40 Dextrose (Dextrose 50%-Water Inj 50 Ml Syringe) 50 ml IV Q15MIN PRN PRN Reason: BG <50 OR BG <70 & pt unresponsive Stop: 09/24/24 01:40 Glucagon (Glucagon Inj 1 Mg Vial) 1 mg IM Q15MIN PRN PRN Reason: BG <70, and no IV access Heparin Sodium (Porcine) (Heparin Sod Inj 5000 Unit/Ml Vial) 5,000 unit SC Q12HR [facility] Stop: 09/08/24 20:59 Sodium Chloride (Ns) 1,000 mls @ 75 mls/hr IV .[id number] [facility] Stop: 09/24/24 01:44 Last Admin: 08/25/24 03:08 Dose: 75 mls/hr Insulin Human Lispro (Insulin Lispro (Admelog) 1 Unit/0.01 Ml Unit) 0 unit SC [facility]; Protocol Stop: 09/24/24 07:29 Last Admin: 08/25/24 11:18 Dose: Not Given Lisinopril (Lisinopril 20 Mg Tablet) 40 mg PO QDAY [facility] Stop: 09/24/24 08:59 Last Admin: 08/25/24 08:01 Dose: 40 mg Pantoprazole Sodium (Pantoprazole Inj 40 Mg Vial) 40 mg IV QDAY [facility] Stop: 09/24/24 08:59 Last Admin: 08/25/24 08:01 Dose: 40 mg Polyethylene Glycol (Polyethylene Glycol 17 Gm Packet) 17 gm PO QDAY PRN PRN Reason: constipation Stop: 09/24/24 08:59 Discontinued Medications Heparin Sodium (Porcine) (Heparin Sod Inj 5000 Unit/Ml Vial) 5,000 unit SC Q8HR [facility] Stop: 09/08/24 05:59 Last Admin: 08/25/24 05:56 Dose: 5,000 unit Assessment & Plan Plan #Acute large right cerebellar infarct Patient endorses dizziness and ataxia associated to nausea and vomiting upon presentation. Head CT showed old upper infarct in the right cerebral large hemisphere, negative for acute hemorrhage, midline shift or mass effect. 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 Carotid Doppler ultrasound right and left internal carotids with 0-10% stenosis. Brain MRI showed large acute infarct in the right cerebellar hemisphere. Plan: - Continue atorvastatin 80 mg qday ? Continue aspirin 81 mg p.o. daily ? Started Plavix 75 mg p.o. daily - Pending echo bubble study ? Blood pressure control ? Referred to physical therapy #Hypertension #Hyperlipidemia #Type 2 diabetes #History of GERD ? Continue management per primary team Patient discussed with my attending Dr Alina Thompson MD PGY-3 Disclaimer: Despite multiple revisions, due to the dictation software being used, the document bellow may not be free of grammatical errors including phonetic/typographic errors. However, this does not deter from our commitment to providing health care in the patient's best interest in mind. Attending Provider Attestation/Addendum I personally have seen and examined the patient at the bedside and I agree with resident's findings, assessment and plan of care. Her gait ataxia should improve with inpatient rehab. Stable for discharge to rehab on aspirin Plavix and statin
--- NOTE | 2024-08-25 12:54 | ESPR_ITS ---
Documentation for date of: 08/25/24 Subjective Subjective Interval history: Patient examined at bedside. She still complains of positional dizziness. Patient had gone to [facility] last weekend with same symptoms. She was not admitted and discharged with supportive care. MRI brain Large acute infarcts in the right cerebellar hemisphere. CTA head neck showed 80% plus stenosis right posterior cerebral artery, junction P1 P2 segments Patient passed swallow eval. PT eval, neuro recs, echo are pending. She does not have any new neuro deficitis. Continue with aspirin 81, atorvastatin 80mg, lisinopril 40mg daily. Exam Vital Signs Temp Pulse Resp BP Pulse Ox O2 Del Method 98.2 F 82 18 157/77 H 93 L Room Air 08/25/24 12:00 08/25/24 12:00 08/25/24 12:00 08/25/24 12:00 08/25/24 12:08/25/24 12:00 Narrative Exam General: Elderly female, easily arousable, no distress HEENT: Normocephalic, atraumatic, mucous membranes moist, facial movements in tact. Heart: Regular rate and rhythm, no murmurs. Lungs: Clear to auscultation with no wheezing or crackles. Abdomen: Soft, nondistended, nontender, positive bowel sounds. ?No guarding or rebound tenderness. Neurologic: Alert and oriented x3, no new gross neurological deficit, and patient able to move all 4 extremities. Extremities: No edema. Skin: No rash or ecchymoses. Objective Labs 08/25/24 04:45 08/25/24 04:45 Labs: Laboratory Results - last 24 hr 08/24/24 08/24/24 08/25/24 22:54 23:44 04:45 WBC 8.3 7.4 RBC 4.33 4.12 Hgb 12.6 11.9 L Hct 37.6 34.9 L MCV 87 85 MCH 29.1 28.9 MCHC 33.5 34.1 RDW Std Deviation 41.8 41.5 Plt Count 237 226 Neut % (Auto) 77 70 Lymph % (Auto) 12 20 [place] % (Auto) 10 9 Eos % (Auto) 0 1 Baso % (Auto) 0 0 Neut # (Auto) 6.4 5.2 Lymph # (Auto) 1.0 1.5 [place] # (Auto) 0.8 0.7 Eos # (Auto) 0.0 0.1 Baso # (Auto) 0.0 0.0 Immature Gran # (Auto) 0.04 H 0.02 H Absolute Nucleated RBC 0.00 0.00 Immature Gran % 1 H 0 Nucleated RBC % 0 0 PT 11.6 INR 1.1 APTT 26.6 Sodium 130 L 133 L Potassium 3.9 3.6 Chloride 98 101 Carbon Dioxide 24.2 23.8 Anion Gap 8 8 BUN 6 L 5 L Creatinine 0.6 0.5 L Estim Creat Clear Calc 64.8 69.7 eGFR > 60 > 60 BUN/Creatinine Ratio 10 L 10 L Glucose [address] Glu mg/dL 131 Hemoglobin A1c 6.2 H Calculated Osmolality 261 L 265 L Calcium 8.4 8.4 Corrected Calcium 8.4 L Magnesium 1.8 Total Bilirubin 1.0 AST 18 ALT 13 Alkaline Phosphatase 44 L Lactate Dehydrogenase 212 Troponin I < 0.020 B-Natriuretic Peptide 180 H Total Protein 7.1 Albumin 4.6 Globulin 2.5 Albumin/Globulin Ratio 1.8 Triglycerides 67 Cholesterol 187 LDL Cholesterol, Calc 117 HDL Cholesterol 57 Cholesterol/HDL Ratio 3.3 L Ur Collection Type Clean Catch Urine Color Lt-Yellow Urine Clarity Clear Urine pH 7.0 Ur Specific [place] 1.014 Urine Protein Negative Urine Glucose (UA) 3+ A Urine Ketones Negative Urine Blood Negative Urine Nitrite Negative Urine Bilirubin Negative Urine Urobilinogen (Auto) Negative Ur Leukocyte Esterase Negative Urine RBC 2 Urine WBC 1 Ur Squamous Epith Cells < 1 Urine Bacteria None Quality Measures Quality Measures VTE prophylaxis Advance care planning discussed with:: patient Assessment & Plan Assessment Current Active Medications: Generic Name Dose Route Start Last Admin Trade Name Lalitha PRN Reason Stop Dose Admin Aspirin 81 mg 08/25/24 09:00 08/25/24 08:01 Aspirin Ec 81 Mg Tabec PO 09/24/24 08:59 81 mg QDAY BOBBY Administration Atorvastatin Calcium 80 mg 08/25/24 21:00 Atorvastatin Calcium 20 Mg Tablet PO 09/24/24 20:59 HS BOBBY Dextrose 25 ml 08/25/24 01:41 Dextrose 50%-Water Inj 50 Ml Syringe IV 09/24/24 01:40 Q15MIN PRN BG 50-70 responsive npo pt Dextrose 50 ml 08/25/24 01:41 Dextrose 50%-Water Inj 50 Ml Syringe IV 09/24/24 01:40 Q15MIN PRN BG <50 OR BG <70 & pt unresponsive Glucagon 1 mg 08/25/24 01:41 Glucagon Inj 1 Mg Vial IM Q15MIN PRN BG <70, and no IV access Heparin Sodium (Porcine) 5,000 unit 08/25/24 21:00 Heparin Sod Inj 5000 Unit/Ml Vial SC 09/08/24 20:59 Q12HR BOBBY Sodium Chloride 1,000 mls @ 75 mls/hr 08/25/24 01:45 08/25/24 03:08 Ns IV 09/24/24 01:44 75 mls/hr .[id number] BOBBY Administration Insulin Human Lispro 0 unit 08/25/24 07:30 08/25/24 11:18 Insulin Lispro (Admelog) 1 Unit/0.01 Ml Unit SC 09/24/24 07:29 Not Given AC BOBBY Protocol Lisinopril 40 mg 08/25/24 09:00 08/25/24 08:01 Lisinopril 20 Mg Tablet PO 09/24/24 08:59 40 mg QDAY BOBBY Administration Pantoprazole Sodium 40 mg 08/25/24 09:00 08/25/24 08:01 Pantoprazole Inj 40 Mg Vial IV 09/24/24 08:59 40 mg QDAY BOBBY Administration Polyethylene Glycol 17 gm 08/25/24 03:16 Polyethylene Glycol 17 Gm Packet PO 09/24/24 08:59 QDAY PRN constipation Plan Gloria Taylor is 84-year-old female with a previous medical history of hypertension, diabetes, hyperlipidemia, GERD who came in on 08/24/24 due to dizziness, headache, inability to ambulate on her own, inability to stand. Patient was admitted for stroke rule out. #Acute CVA Patient is out of the time window for thrombolysis. Reports feeling dizzy and headache. Symptoms could be indicative of vertebrobasilar stroke. CT head showed multiple right cerebellar hemisphere infarcts. 08/25/24: Initial NIHSS is 0. MRI brain Large acute infarcts in the right cerebellar hemisphere. CTA head neck showed 80% plus stenosis right posterior cerebral artery, junction P1 P2 segments A1c 6.2, Lipid panel normal -neuro consulted: started Plavix 75 mg daily -permissive hypertension until 2am -passed swallow eval - Physical therapy eval pending - Atorvastatin 80 mg qday - Maintain euglycemia and euthermia - TSH pending - Neuro checks q4hr - Telemetry -echo with bubble pending - Normal saline at 75 ml/hr -patient to follow up with vascular surgery after discharge for evaluation of possible endarterectomy #Hypertension #Hyperlipidemia Plan: - Resumed home lisinopril - Atorvastatin 80 mg qday #Non-insulin dependent Type 2 diabetes, well controlled A1c 6.2, patient takes metformin 500mg BID -blood sugar checks AC - Insulin sliding scale - Hypoglycemia protocol #History of GERD - Pantoprazole 40 mg qday Health maintenance: FEN: low carb diet DVT prophylaxis: Heparin sc GI prophylaxis: Pantoprazole 40 mg Dispo: Telemetry CODE STATUS: Full code The patient's management plan was discussed with my attending physician Dr. Talbot. Rosa Flynn, PGY-1
[2024-08-25] MEDS: CLOPIDOGREL BISULFATE 75 MG TABLET PO (18:05)
[2024-08-25] MEDS: ATORVASTATIN CALCIUM 20 MG TABLET 80 MG PO (20:40)
[2024-08-26] VITALS (10 sets, daily range): BP systolic 144–169; BP diastolic 63–89; PULSE 73–95; RESP 16–20; TEMP 36.3–36.6; O2SAT 93–97; BMI 25.1
--- NOTE | 2024-08-26 01:40 | ECHO_ITS ---
Transthoracic Echo Report Ht (in): 64 Wt (lb): 141 Exam Location: Echo Lab Status: Inpatient Stator Plate Washer: Martine Salazar Indications: Procedure Performed: BP: 150 / 80 HR: 90 Technical Quality: Technically difficult study MEASUREMENTS (Male / Female) Normal Values 2D ECHO LV Diastolic Diameter PLAX 4.9 cm 4.2 - 5.9 / 3.9 - 5.3 cm LV Systolic Diameter PLAX 3.5 cm IVS Diastolic Thickness 1.1 cm 0.6 - 1.0 / 0.6 - 0.9 cm LVPW Diastolic Thickness 1.0 cm 0.6 - 1.0 / 0.6 - 0.9 cm LV Relative Wall Thickness 0.4 LVOT Diameter 2.4 cm Aortic Root Diameter 2.7 cm LA Volume Index 31.4 cm?/m? 16 - 28 cm?/m? Ascending Aorta Diameter 2.8 cm DOPPLER AV Peak Velocity 142.0 cm/s AV Peak Gradient 8.1 mmHg AV Mean Gradient 4.0 mmHg AV Velocity Time Integral 29.1 cm LVOT Peak Velocity 91.6 cm/s LVOT Peak Gradient 3.4 mmHg LVOT Velocity Time Integral 20.7 cm LVOT Cardiac Index 4932.9 cm?/min?m? AV Area Cont Eq vti 3.2 cm? AV Area Cont Eq pk 2.9 cm? MV Area PHT 4.8 cm? MR Peak Velocity 555.5 cm/s MR Peak Gradient 123.4 mmHg Mitral E Point Velocity 51.4 cm/s Mitral A Point Velocity 73.2 cm/s Mitral E to A Ratio 0.7 LV E' Lateral Velocity 7.5 cm/s Mitral E to LV E' Lateral Ratio 6.8 LV E' Septal Velocity 6.5 cm/s Mitral E to LV E' Septal Ratio 7.9 TR Peak Velocity 288.5 cm/s TR Peak Gradient 33.3 mmHg PV Peak Velocity 125.0 cm/s PV Peak Gradient 6.3 mmHg FINDINGS Left Ventricle Normal left ventricular size, wall thickness, systolic function with no obvious regional wall motion abnormalities. Normal left ventricular diastolic filling pattern for age. The ejection fraction is visually estimated at 50-55%. There is grade I diastolic dysfunction. Right Ventricle The right ventricle is normal in size and systolic function. The estimated right ventricular sysotolic pressure, 41mmHg. RAP 5. Left Atrium The left atrium is normal by two-dimensional, color flow and Doppler imaging with no structural abnormalities, no thrombus formation present. Right Atrium The right atrium is normal by two-dimensional imaging, color flow and Doppler imaging with no structural abnormalities, no thrombus formation present. Atrial Septum The interatrial septum appears normal with no evidence of a shunt. Aorta The aorta is normal by two-dimensional, color flow and Doppler interrogation. Mitral Valve Trace to mild mitral regurgitation. Aortic Valve The aortic valve is trileaflet and normal by two-dimensional, color flow and Doppler interrogation. There is no significant aortic valve regurgitation. Tricuspid Valve There is mild tricuspid valve regurgitation. Pulmonic Valve The pulmonic valve is not well visualized. There is no significant pulmonic valve regurgitation. Vessels The pulmonary artery appears normal. The inferior vena cava pulmonary and hepatic veins appear normal. Pericardium The pericardium is normal by two-dimensional imaging. There is no significant pericardial effusion. CONCLUSIONS Indication: CVA with bubble study Bubble study negative for any PFO or ASD. TTE suboptimal and consider FIONA if high clinical index of suspicion. Normal LV size and function. Esmtimated EF 50-55%. Grade I diastolic dysfunction. RA is normal in size and systolic function. Estimated RVSP 41mmHg. Mildly elevated.. Trace to mild MR. Mild TR. Mild aortic valve sclerosis without stenosis. Mello Bailon (Electronically Signed) Final Date: 26 August 2024 20:07
[2024-08-26 05:56] LABS: Basophils % (Auto) 1 % (0-2.5); Eosinophils # (Auto) 0.1 Thou/mm3 (0.0-0.5); Eosinophils % (Auto) 2 % (0-10); Hematocrit 37.2 % (36.0-46.0); Hemoglobin 12.3 g/dL (12.0-16.0); Immature Granulocytes % (Auto) 0 % (0-0); Immature Granulocytes Auto 0.02 Thou/mm3 (0.00-0.00); Lymphocytes # (Auto) 1.7 Thou/mm3 (1.0-4.8); Lymphocytes % (Auto) 29 % (10-50); Mean Corpuscular HGB Conc 33.1 g/dl (31.0-37.0); Mean Corpuscular Hemoglobin 28.9 pg (25.0-35.0); Mean Corpuscular Volume 88 fL (80-100); Monocytes # (Auto) 0.9 Thou/mm3 (0.0-0.8); Monocytes % (Auto) 15 % (0-12); Neutrophils # (Auto) 3.2 Thou/mm3 (1.8-7.7); Neutrophils % (Auto) 53 % (37-80); Nucleated Red Blood Cell % 0 /100 WBC (0); Platelet Count 223 Thou/mm3 (140-440); RDW Standard Deviation 44.2 fL (36.4-46.3); Red Blood Count 4.25 Miln/mm3 (4.00-5.20)
[2024-08-26 06:27] LABS: Anion Gap 9 (7-16); BUN/Creatinine Ratio 15 Ratio (12-20); Blood Urea Nitrogen 9 mg/dL (9-23); Calcium 8.4 mg/dL (8.3-10.6); Carbon Dioxide 24.7 mMol/L (20.0-31.0); Chloride 109 mMol/L (98-107); Creatinine (Component) 0.6 mg/dL (0.6-1.3); Estimated Creatinine Clearance 58.1 mL/min (>60); Glucose 116 mg/dL (74-106); Osmolality,Calculated 284 (275-295); Potassium 3.4 mMol/L (3.4-5.1); Sodium 143 mMol/L (136-145); Thyroid Stimulating Hormone 1.35 uIU/mL (0.55-4.78); eGFR > 60 See Note
[2024-08-26] MEDS: PANTOPRAZOLE INJ 40 MG VIAL IV (08:15)
[2024-08-26] MEDS: ASPIRIN EC 81 MG TABEC PO (08:15)
[2024-08-26] MEDS: CLOPIDOGREL BISULFATE 75 MG TABLET PO (08:16)
[2024-08-26] MEDS: Lisinopril 20 MG TABLET 40 MG PO (08:16)
--- NOTE | 2024-08-26 09:11 | ESPR_ITS ---
Documentation for date of: 08/26/24 Subjective Subjective Interval history: No overnight acute events This morning at the bedside family members at her room patient endorsed that she is feeling sick and that she does not feel well otherwise denies any episodes of nausea, vomiting dizziness or any other associated symptoms. Patient family members were updated about the MRI findings that were consistent right cerebellar stroke. Per neurology standpoint patient can be discharged with Plavix, aspirin and atorvastatin follow-up in the neurology 2 weeks after discharge as well as continue physical therapy, per case management family members want to decide between SNF discharge versus home but they have not decided yet. Exam Vital Signs Temp Pulse Resp BP Pulse Ox O2 Del Method 97.6 F 78 17 152/78 H 96 Room Air 08/26/24 07:40 08/26/24 08:16 08/26/24 07:40 08/26/24 08:16 08/26/24 07:40 08/26/24 07:40 Narrative Exam General: No acute distress, well appearing, alert, interactive. HEENT: NC/AT, PERRL, EOMI, Good conjugate gaze, moist mucous membranes, oropharynx clear. Neck: Supple, No masses, No adenopathy, carotid pulse 2+ bilaterally without bruits, No JVD, normal range of motion. Chest: Symmetrical, atraumatic, and with equal expansion , Nontender on palpation no deformity and no crepitus. CVS: S1 and S2 present, Regular rate and rhythm, No murmurs, rubs or gallops perceived during auscultation. Lungs: Normal respiratory effort, CTAB, no wheezing, rhonchi or rales perceived during auscultation, No intercostal or subcostal retraction. Abdomen : Soft, no tenderness to palpation, no guarding ,no rebound, +BS, no organomegaly. Extremities: No edema, warm well perfused, normal tone and ROM, strength and sensation intact, cap refill less than 2, +2 dp equal bilaterally, able to move all 4 extremities spontaneously. Skin: Intact, no rashes, no lesions, no erythema or jaundice noted Neuro: AOx3, cranial nerves II through XII intact, reflex symmetric and sensation normal, no focal neurologic deficits noted, no dysmetria noted in [id number] test, gait GCS 15, able to move all 4 extremities spontaneously, strength on bilateral upper lower extremities 5/5 Psych: Appropriate mood and affect. Objective Labs 08/26/24 05:10 08/26/24 05:10 Labs: Laboratory Results - last 24 hr 08/26/24 05:10 WBC 6.0 RBC 4.25 Hgb 12.3 Hct 37.2 MCV 88 MCH 28.9 MCHC 33.1 RDW Std Deviation 44.2 Plt Count 223 Neut % (Auto) 53 Lymph % (Auto) 29 [place] % (Auto) 15 H Eos % (Auto) 2 Baso % (Auto) 1 Neut # (Auto) 3.2 Lymph # (Auto) 1.7 [place] # (Auto) 0.9 H Eos # (Auto) 0.1 Baso # (Auto) 0.0 Immature Gran # (Auto) 0.02 H Absolute Nucleated RBC 0.00 Immature Gran % 0 Nucleated RBC % 0 Sodium 143 D Potassium 3.4 Chloride 109 H Carbon Dioxide 24.7 Anion Gap 9 BUN 9 Creatinine 0.6 Estim Creat Clear Calc 58.1 L eGFR > 60 BUN/Creatinine Ratio 15 Glucose 116 H Calculated Osmolality 284 Calcium 8.4 TSH 1.35 Quality Measures Quality Measures VTE prophylaxis Advance care planning discussed with:: patient and child Assessment & Plan Assessment Current Active Medications: Generic Name Dose Route Start Last Admin Trade Name Freq PRN Reason Stop Dose Admin Aspirin 81 mg 08/25/24 09:00 08/26/24 08:15 Aspirin Ec 81 Mg Tabec PO 09/24/24 08:59 81 mg QDAY BOBBY Administration Atorvastatin Calcium 80 mg 08/25/24 21:00 08/25/24 20:40 Atorvastatin Calcium 20 Mg Tablet PO 09/24/24 20:59 80 mg HS BOBBY Administration Clopidogrel Bisulfate 75 mg 08/25/24 18:00 08/26/24 08:16 Clopidogrel Bisulfate 75 Mg Tablet PO 09/24/24 17:59 75 mg QDAY BOBBY Administration Dextrose 25 ml 08/25/24 01:41 Dextrose 50%-Water Inj 50 Ml Syringe IV 09/24/24 01:40 Q15MIN PRN BG 50-70 responsive npo pt Dextrose 50 ml 08/25/24 01:41 Dextrose 50%-Water Inj 50 Ml Syringe IV 09/24/24 01:40 Q15MIN PRN BG <50 OR BG <70 & pt unresponsive Glucagon 1 mg 08/25/24 01:41 Glucagon Inj 1 Mg Vial IM Q15MIN PRN BG <70, and no IV access Sodium Chloride 1,000 mls @ 75 mls/hr 08/25/24 01:45 08/25/24 20:45 Ns IV 09/24/24 01:44 75 mls/hr .[id number] BOBBY Administration Insulin Human Lispro 0 unit 08/25/24 07:30 08/26/24 08:13 Insulin Lispro (Admelog) 1 Unit/0.01 Ml Unit SC 09/24/24 07:29 Not Given AC [facility] Protocol Lisinopril 40 mg 08/25/24 09:00 08/26/24 08:16 Lisinopril 20 Mg Tablet PO 09/24/24 08:59 40 mg QDAY BOBBY Administration Pantoprazole Sodium 40 mg 08/25/24 09:00 08/26/24 08:15 Pantoprazole Inj 40 Mg Vial IV 09/24/24 08:59 40 mg QDAY BOBBY Administration Polyethylene Glycol 17 gm 08/25/24 03:16 Polyethylene Glycol 17 Gm Packet PO 09/24/24 08:59 QDAY PRN constipation Plan #Acute large right cerebellar infarct Patient endorses dizziness and ataxia associated to nausea and vomiting upon presentation. Head CT showed old upper infarct in the right cerebral large hemisphere, negative for acute hemorrhage, midline shift or mass effect. 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 Carotid Doppler ultrasound right and left internal carotids with 0-10% stenosis. Brain MRI showed large acute infarct in the right cerebellar hemisphere. Per case management family members want to decide possible SNF but they have not taken a decision yet Plan: Per neurology standpoint patient can be discharged after echo with bubble study - Continue atorvastatin 80 mg qday ? Continue aspirin 81 mg p.o. daily ? Continue Plavix 75 mg p.o. daily - Pending echo bubble study ? Blood pressure control ? Continue physical therapy #Hypertension #Hyperlipidemia #Type 2 diabetes #History of GERD ? Continue management per primary team Patient discussed with my attending Dr Alina Thompson MD PGY-3 Disclaimer: Despite multiple revisions, due to the dictation software being used, the document bellow may not be free of grammatical errors including phonetic/typographic errors. However, this does not deter from our commitment to providing health care in the patient's best interest in mind. Attending Provider Attestation/Addendum I personally have seen and examined the patient at the bedside and agreed with resident's findings, assessment and plan of care. Patient is going to benefit from inpatient rehab for better balance and coordination and to continue with aspirin, Plavix and statin.
[2024-08-26] MEDS: POTASSIUM CHLORIDE 20 mEq TABCR 40 MEQ PO (09:36)
--- NOTE | 2024-08-26 14:55 | PC.SS ---
Gloria Taylor is a 84-year-old female admitted to Med-Surg for Dizziness. RITA conducted bedside contact with the patient to complete initial assessment and to discuss discharge planning, Marce SALINAS utilized as site interpreter.? Patients dtr Juana Jimenez [phone] confirmed demographic information. She identifies herself as the pts surrogate decision maker. Patient resides at home with her son. Juana states she is typically able to complete all ADL?s independently, no need for any source of DME. Pts PCP is Dr. Antoine (sees him every 3 months) and her pharmacy of choice is [facility] on [address]. DC options discussed, they wish for pt to return home, refused SNF but open to HH if needed. Pts fam will provide transportation upon DC. No further intervention required at this time, social media editor would be available to address any further concerns. DC Plan: Home (HH) (no preference) Contact: Juana Jimenez [phone] PCP: KAE Valadez
--- NOTE | 2024-08-26 15:12 | PD.RESPRO ---
Documentation for date of: 08/26/24 Subjective Subjective Interval history: Patient examined at bedside. No acute events overnight. Patient complains of some headache with dizziness. Echo with bubble study pending for workup of acute CVA. Neurology was consulted and started patient on Plavix. Should continue with atorvastatin and aspirin daily. Used to return home with home health. Anticipate discharge next 24 hours. Exam Vital Signs Temp Pulse Resp BP Pulse Ox O2 Del Method 97.9 F 90 18 150/80 H 97 Room Air 08/26/24 11:27 08/26/24 12:00 08/26/24 11:27 08/26/24 11:27 08/26/24 11:27 08/26/24 11:27 Narrative Exam General: Elderly female, easily arousable, no distress HEENT: Normocephalic, atraumatic, mucous membranes moist, facial movements in tact. Heart: Regular rate and rhythm, no murmurs. Lungs: Clear to auscultation with no wheezing or crackles. Abdomen: Soft, nondistended, nontender, positive bowel sounds. ?No guarding or rebound tenderness. Neurologic: Alert and oriented x3, no new gross neurological deficit, and patient able to move all 4 extremities. Strength on bilateral upper lower extremities 5/5 Extremities: No edema. Skin: No rash or ecchymoses. Objective Labs 08/27/24 04:21 08/27/24 04:21 Labs: Laboratory Results - last 24 hr 08/26/24 05:10 WBC 6.0 RBC 4.25 Hgb 12.3 Hct 37.2 MCV 88 MCH 28.9 MCHC 33.1 RDW Std Deviation 44.2 Plt Count 223 Neut % (Auto) 53 Lymph % (Auto) 29 [place] % (Auto) 15 H Eos % (Auto) 2 Baso % (Auto) 1 Neut # (Auto) 3.2 Lymph # (Auto) 1.7 [place] # (Auto) 0.9 H Eos # (Auto) 0.1 Baso # (Auto) 0.0 Immature Gran # (Auto) 0.02 H Absolute Nucleated RBC 0.00 Immature Gran % 0 Nucleated RBC % 0 Sodium 143 D Potassium 3.4 Chloride 109 H Carbon Dioxide 24.7 Anion Gap 9 BUN 9 Creatinine 0.6 Estim Creat Clear Calc 58.1 L eGFR > 60 BUN/Creatinine Ratio 15 Glucose 116 H Calculated Osmolality 284 Calcium 8.4 TSH 1.35 Quality Measures Quality Measures VTE prophylaxis Advance care planning discussed with:: patient Assessment & Plan Assessment Current Active Medications: Generic Name Dose Route Start Last Admin Trade Name Freq PRN Reason Stop Dose Admin Aspirin 81 mg 08/25/24 09:00 08/26/24 08:15 Aspirin Ec 81 Mg Tabec PO 09/24/24 08:59 81 mg QDAY BOBBY Administration Atorvastatin Calcium 80 mg 08/25/24 21:00 08/25/24 20:40 Atorvastatin Calcium 20 Mg Tablet PO 09/24/24 20:59 80 mg HS BOBBY Administration Clopidogrel Bisulfate 75 mg 08/25/24 18:00 08/26/24 08:16 Clopidogrel Bisulfate 75 Mg Tablet PO 09/24/24 17:59 75 mg QDAY BOBBY Administration Dextrose 25 ml 08/25/24 01:41 Dextrose 50%-Water Inj 50 Ml Syringe IV 09/24/24 01:40 Q15MIN PRN BG 50-70 responsive npo pt Dextrose 50 ml 08/25/24 01:41 Dextrose 50%-Water Inj 50 Ml Syringe IV 09/24/24 01:40 Q15MIN PRN BG <50 OR BG <70 & pt unresponsive Glucagon 1 mg 08/25/24 01:41 Glucagon Inj 1 Mg Vial IM Q15MIN PRN BG <70, and no IV access Insulin Human Lispro 0 unit 08/25/24 07:30 08/26/24 12:07 Insulin Lispro (Admelog) 1 Unit/0.01 Ml Unit SC 09/24/24 07:29 Not Given AC [facility] Protocol Lisinopril 40 mg 08/25/24 09:00 08/26/24 08:16 Lisinopril 20 Mg Tablet PO 09/24/24 08:59 40 mg QDAY BOBBY Administration Pantoprazole Sodium 40 mg 08/25/24 09:00 08/26/24 08:15 Pantoprazole Inj 40 Mg Vial IV 09/24/24 08:59 40 mg QDAY BOBBY Administration Polyethylene Glycol 17 gm 08/25/24 03:16 Polyethylene Glycol 17 Gm Packet PO 09/24/24 08:59 QDAY PRN constipation Plan Gloria Taylor is 84-year-old female with a previous medical history of hypertension, diabetes, hyperlipidemia, GERD who came in on 08/24/24 due to dizziness, headache, inability to ambulate on her own, inability to stand. Patient was admitted for stroke rule out. #Acute CVA Patient is out of the time window for thrombolysis. Reports feeling dizzy and headache. Symptoms could be indicative of vertebrobasilar stroke. CT head showed multiple right cerebellar hemisphere infarcts. 08/25/24: Initial NIHSS is 0. MRI brain Large acute infarcts in the right cerebellar hemisphere. CTA head neck showed 80% plus stenosis right posterior cerebral artery, junction P1 P2 segments A1c 6.2, Lipid panel normal, TSH 1.35 -neuro consulted: started Plavix 75 mg daily -passed swallow eval - Physical therapy eval: patient to continue PT with HH. - Atorvastatin 80 mg qday - Neuro checks q4hr - Telemetry -echo with bubble pending - Normal saline at 75 ml/hr -patient to follow up with vascular surgery after discharge for evaluation of possible endarterectomy #Hypertension #Hyperlipidemia Plan: - Resumed home lisinopril - Atorvastatin 80 mg qday #Non-insulin dependent Type 2 diabetes, well controlled A1c 6.2, patient takes metformin 500mg BID -blood sugar checks AC - Insulin sliding scale - Hypoglycemia protocol #History of GERD - Pantoprazole 40 mg qday Health maintenance: FEN: low carb diet DVT prophylaxis: Heparin sc GI prophylaxis: Pantoprazole 40 mg Dispo: Telemetry, dc pending echo with bubble CODE STATUS: Full code The patient's management plan was discussed with my attending physician Dr. Talbot. Rosa Flynn, PGY-1 I discussed with and supervised the marketing pr intern physician who took care of this patient. I personally saw and examined the patient and discussed the assessment and plan with the entire medicine team, including my attending Dr. Dahiana Flores. I agree with the assessment and plan as documented above. Patient admitted for stroke workup. Was found to have a right large acute cerebellar infarct. Patient pending echo with bubble study to r/o PFO. Per neuro reccs will continue plavix, ASA and atorvastatin. Patient family disccused discharge and would like home with home health. Antione Vasques M.D. Internal Medicine PGY-3 Attending Provider Attestation/Addendum I have discussed and was present for the essential components of the history, physical examination, diagnosis, and treatment plan with the resident. I agree with the patient's care as documented by the resident and amended herein by me. Juan Talbot DO. Patient seen and evaluated this AM. No acute events overnight, vital signs stable, patient afebrile, MRI demonstrated large left cerebellar infarct, echo still pending, per patient's family, patient will go home with home health physical therapy, will continue aspirin statin and Plavix for now. Neurology consulted, appreciate recommendations. Likely discharge after echo read has resulted Although this document has been carefully reviewed, there may still be some phonetic and other typographical errors. These errors are purely grammatical due to imperfections in the software program and should not be construed in any way to compromise the substance of the patient's medical care during this visit.
--- NOTE | 2024-08-26 15:19 | PC.SS ---
Rounding: Pending ECHO and will DC home with HH when DC ready
[2024-08-26] MEDS: ACETAMINOPHEN 500 MG TABLET 1000 MG PO (16:31)
[2024-08-26] MEDS: ATORVASTATIN CALCIUM 20 MG TABLET 80 MG PO (20:43)
[2024-08-27] VITALS (11 sets, daily range): BP systolic 128–168; BP diastolic 62–87; PULSE 74–92; RESP 16–20; TEMP 36.3–37; O2SAT 95–97; BMI 25.1; BMI 25.0
[2024-08-27 06:09] LABS: Basophils # (Auto) 0.1 Thou/mm3 (0.0-0.2); Basophils % (Auto) 1 % (0-2.5); Eosinophils # (Auto) 0.3 Thou/mm3 (0.0-0.5); Eosinophils % (Auto) 5 % (0-10); Hematocrit 39.2 % (36.0-46.0); Immature Granulocytes % (Auto) 0 % (0-0); Immature Granulocytes Auto 0.02 Thou/mm3 (0.00-0.00); Lymphocytes # (Auto) 1.7 Thou/mm3 (1.0-4.8); Lymphocytes % (Auto) 25 % (10-50); Mean Corpuscular HGB Conc 33.2 g/dl (31.0-37.0); Mean Corpuscular Hemoglobin 28.8 pg (25.0-35.0); Mean Corpuscular Volume 87 fL (80-100); Monocytes # (Auto) 0.9 Thou/mm3 (0.0-0.8); Monocytes % (Auto) 13 % (0-12); Neutrophils # (Auto) 3.8 Thou/mm3 (1.8-7.7); Neutrophils % (Auto) 56 % (37-80); Nucleated Red Blood Cell % 0 /100 WBC (0); Platelet Count 220 Thou/mm3 (140-440); RDW Standard Deviation 44.7 fL (36.4-46.3); Red Blood Count 4.51 Miln/mm3 (4.00-5.20); White Blood Count 6.8 Thou/mm3 (3.6-11.0)
[2024-08-27 06:42] LABS: Anion Gap 9 (7-16); BUN/Creatinine Ratio 20 Ratio (12-20); Blood Urea Nitrogen 14 mg/dL (9-23); Calcium 8.7 mg/dL (8.3-10.6); Carbon Dioxide 23.6 mMol/L (20.0-31.0); Chloride 107 mMol/L (98-107); Creatinine (Component) 0.7 mg/dL (0.6-1.3); Estimated Creatinine Clearance 54.1 mL/min (>60); Glucose 130 mg/dL (74-106); Osmolality,Calculated 281 (275-295); Sodium 140 mMol/L (136-145); eGFR > 60 See Note
[2024-08-27] MEDS: ASPIRIN EC 81 MG TABEC PO (10:14)
[2024-08-27] MEDS: Lisinopril 20 MG TABLET 40 MG PO (10:14)
[2024-08-27] MEDS: amLODIPine BESYLATE 2.5 MG TABLET PO (10:15)
[2024-08-27] MEDS: Milk Of Magnesia Susp 30 ML UDC PO (10:16)
[2024-08-27] MEDS: CLOPIDOGREL BISULFATE 75 MG TABLET PO (10:16)
--- NOTE | 2024-08-27 11:17 | PD.RESPRO ---
Documentation for date of: 08/27/24 Subjective Subjective Interval history: No overnight acute events This morning the bedside patient is at mentation baseline, alert, oriented x 3, respond to questions properly, denied new episode of nausea vomiting or dizziness per patient daughter at the bedside she stated when she sits straight that she feels dizzy or when she wants to go to the bathroom. Per physical therapy recommendations patient will benefit from SNF or home health physical therapy. Echocardiogram was negative for PFO or ASD Per neurology standpoint patient can be discharged with Plavix, aspirin and atorvastatin follow-up in the neurology 2 weeks after discharge as well as continue physical therapy, per case management family members want to decide between SNF discharge versus home home health PT Exam Vital Signs Temp Pulse Resp BP Pulse Ox O2 Del Method 98.6 F 90 16 158/82 H 95 Room Air 08/27/24 07:20 08/27/24 10:15 08/27/24 07:20 08/27/24 10:15 08/27/24 07:20 08/27/24 07:20 Narrative Exam General: No acute distress, well appearing, alert, interactive, AO x 3 HEENT: NC/AT, PERRL, EOMI, Good conjugate gaze, moist mucous membranes, oropharynx clear. Neck: Supple, No masses, No adenopathy, carotid pulse 2+ bilaterally without bruits, No JVD, normal range of motion. Chest: Symmetrical, atraumatic, and with equal expansion , Nontender on palpation no deformity and no crepitus. CVS: S1 and S2 present, Regular rate and rhythm, No murmurs, rubs or gallops perceived during auscultation. Lungs: Normal respiratory effort, CTAB, no wheezing, rhonchi or rales perceived during auscultation, No intercostal or subcostal retraction. Abdomen : Soft, no tenderness to palpation, no guarding ,no rebound, +BS, no organomegaly. Extremities: No edema, warm well perfused, normal tone and ROM, strength and sensation intact, cap refill less than 2, +2 dp equal bilaterally, able to move all 4 extremities spontaneously. Skin: Intact, no rashes, no lesions, no erythema or jaundice noted Neuro: AOx3, cranial nerves II through XII intact, reflex symmetric and sensation normal, no focal neurologic deficits noted, no dysmetria noted in [id number] test, gait GCS 15, able to move all 4 extremities spontaneously, strength on bilateral upper lower extremities 5/5, gait not evaluated Psych: Appropriate mood and affect. Objective Labs 08/27/24 04:21 08/27/24 04:21 Labs: Laboratory Results - last 24 hr 08/27/24 04:21 WBC 6.8 RBC 4.51 Hgb 13.0 Hct 39.2 MCV 87 MCH 28.8 MCHC 33.2 RDW Std Deviation 44.7 Plt Count 220 Neut % (Auto) 56 Lymph % (Auto) 25 [place] % (Auto) 13 H Eos % (Auto) 5 Baso % (Auto) 1 Neut # (Auto) 3.8 Lymph # (Auto) 1.7 [place] # (Auto) 0.9 H Eos # (Auto) 0.3 Baso # (Auto) 0.1 Immature Gran # (Auto) 0.02 H Absolute Nucleated RBC 0.00 Immature Gran % 0 Nucleated RBC % 0 Sodium 140 Potassium 4.0 D Chloride 107 Carbon Dioxide 23.6 Anion Gap 9 BUN 14 Creatinine 0.7 Estim Creat Clear Calc 54.1 L eGFR > 60 BUN/Creatinine Ratio 20 Glucose 130 H Calculated Osmolality 281 Calcium 8.7 Quality Measures Quality Measures VTE prophylaxis Advance care planning discussed with:: patient and child Assessment & Plan Assessment Current Active Medications: Generic Name Dose Route Start Last Admin Trade Name Freq PRN Reason Stop Dose Admin Acetaminophen 650 mg 08/26/24 16:02 Acetaminophen 325 Mg Tablet PO 09/25/24 16:01 Q4HR PRN FEVER >101 Amlodipine Besylate 2.5 mg 08/27/24 08:35 08/27/24 10:15 Amlodipine Besylate 2.5 Mg Tablet PO 09/26/24 08:34 2.5 mg QDAY BOBBY Administration Aspirin 81 mg 08/25/24 09:00 08/27/24 10:14 Aspirin Ec 81 Mg Tabec PO 09/24/24 08:59 81 mg QDAY BOBBY Administration Atorvastatin Calcium 80 mg 08/25/24 21:00 08/26/24 20:43 Atorvastatin Calcium 20 Mg Tablet PO 09/24/24 20:59 80 mg HS BOBBY Administration Clopidogrel Bisulfate 75 mg 08/25/24 18:00 08/27/24 10:16 Clopidogrel Bisulfate 75 Mg Tablet PO 09/24/24 17:59 75 mg QDAY BOBBY Administration Dextrose 25 ml 08/25/24 01:41 Dextrose 50%-Water Inj 50 Ml Syringe IV 09/24/24 01:40 Q15MIN PRN BG 50-70 responsive npo pt Dextrose 50 ml 08/25/24 01:41 Dextrose 50%-Water Inj 50 Ml Syringe IV 09/24/24 01:40 Q15MIN PRN BG <50 OR BG <70 & pt unresponsive Glucagon 1 mg 08/25/24 01:41 Glucagon Inj 1 Mg Vial IM Q15MIN PRN BG <70, and no IV access Insulin Human Lispro 0 unit 08/25/24 07:30 08/27/24 07:25 Insulin Lispro (Admelog) 1 Unit/0.01 Ml Unit SC 09/24/24 07:29 Not Given AC [facility] Protocol Lisinopril 40 mg 08/25/24 09:00 08/27/24 10:14 Lisinopril 20 Mg Tablet PO 09/24/24 08:59 40 mg QDAY BOBBY Administration Pantoprazole Sodium 40 mg 08/25/24 09:00 08/26/24 08:15 Pantoprazole Inj 40 Mg Vial IV 09/24/24 08:59 40 mg QDAY BOBBY Administration Polyethylene Glycol 17 gm 08/25/24 03:16 Polyethylene Glycol 17 Gm Packet PO 09/24/24 08:59 QDAY PRN constipation Plan #Acute large right cerebellar infarct Patient endorses dizziness and ataxia associated to nausea and vomiting upon presentation. Head CT showed old upper infarct in the right cerebral large hemisphere, negative for acute hemorrhage, midline shift or mass effect. 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 Carotid Doppler ultrasound right and left internal carotids with 0-10% stenosis. Brain MRI showed large acute infarct in the right cerebellar hemisphere. Per case management family members want to decide possible SNF but they have not taken a decision yet. Per physical therapy patient will benefit to be discharged to SNF for home health with PT Echocardiogram bubble study was negative for PFO or ASD Plan: Per neurology standpoint patient can be discharged - Continue atorvastatin 80 mg qday ? Continue aspirin 81 mg p.o. daily ? Continue Plavix 75 mg p.o. daily ? Blood pressure control ? Continue physical therapy #Hypertension #Hyperlipidemia #Type 2 diabetes #History of GERD ? Continue management per primary team Patient discussed with my attending Dr Alina Thompson MD PGY-3 Disclaimer: Despite multiple revisions, due to the dictation software being used, the document bellow may not be free of grammatical errors including phonetic/typographic errors. However, this does not deter from our commitment to providing health care in the patient's best interest in mind. Attending Provider Attestation/Addendum I personally have seen and examined the patient at the bedside and I agree with resident's findings, assessment and plan. Will continue with current management, patient is waiting for placement for short-term rehab to improve the balance and coordination.
[2024-08-27] MEDS: PANTOPRAZOLE INJ 40 MG VIAL IV (12:34)
--- NOTE | 2024-08-27 13:11 | PC.NURSE ---
Per family would like SNF for pt. Jolie can at bedside to go over dc snf options with family.
--- NOTE | 2024-08-27 13:31 | PC.CC ---
1300- DARRYN Ewing and DARRYN Tipton met with the pt and decision maker Juana Tony [phone] in her room 353. Pt and decision maker decided that a SNF would be most appropriate for short-term rehab stay for the pt. DARRYN Tipton provided local SNF resources for the pt and family to select and pt and family was receptive. DARRYN Ewing uploaded the pt packet to [facility] [place] and as of this writing, [facility], [facility] and [facility] accepted the pt. Pts family will contact SS with their decision by 3pm.
--- NOTE | 2024-08-27 14:33 | PC.SS ---
Addendum entered by DARRYN Valenzuela 08/27/24 15:17: PASRR sent via [employer] exchange to [facility]. Original Note: PASRR completed. LV1.
--- NOTE | 2024-08-27 15:15 | PC.CC ---
[facility] and spoke with Loli who provided acceptance. Janette stated she met with the family and family is wanting to go with said SNF. Loli stated she will start the auth process today. SS to arrange transportation after Janette provides an auth for the SNF stay. Nehemias is aware of the process and understands that the pt may be transported tomorrow. SS to f/u with pt and family regarding any updates. Point of contact is Juana Jimenez [phone].
--- NOTE | 2024-08-27 16:25 | PD.RESPRO ---
Documentation for date of: 08/28/24 Subjective Subjective Interval history: Patient examined at bedside. No overnight events, no complaints except for some dizziness when she stands. Continue aspirin, plavix, atorvastatin daily for acute CVA. Discharge to SNF is pending auth. Continue working with PT. Exam Vital Signs Temp Pulse Resp BP Pulse Ox O2 Del Method 97.4 F 79 16 157/88 H 93 L Room Air 08/28/24 16:00 08/28/24 16:00 08/28/24 16:00 08/28/24 16:00 08/28/24 16:00 08/28/24 04:00 Narrative Exam General: Elderly female, easily arousable, no distress HEENT: Normocephalic, atraumatic, mucous membranes moist, facial movements in tact. Heart: Regular rate and rhythm, no murmurs. Lungs: Clear to auscultation with no wheezing or crackles. Abdomen: Soft, nondistended, nontender, positive bowel sounds. ?No guarding or rebound tenderness. Neurologic: Alert and oriented x3, no new gross neurological deficit, and patient able to move all 4 extremities. Strength on bilateral upper lower extremities 5/5 Extremities: No edema. Skin: No rash or ecchymoses. Objective Labs 08/27/24 04:21 08/27/24 04:21 Quality Measures Quality Measures VTE prophylaxis Advance care planning discussed with:: patient Assessment & Plan Assessment Current Active Medications: Generic Name Dose Route Start Last Admin Trade Name Freq PRN Reason Stop Dose Admin Acetaminophen 650 mg 08/27/24 20:12 08/28/24 09:58 Acetaminophen 325 Mg Tablet PO 09/25/24 16:01 650 mg Q4HR PRN Administration Fever >100.3 or pain 1-3 Amlodipine Besylate 2.5 mg 08/27/24 08:35 08/28/24 09:58 Amlodipine Besylate 2.5 Mg Tablet PO 09/26/24 08:34 2.5 mg QDAY BOBBY Administration Aspirin 81 mg 08/25/24 09:00 08/28/24 09:58 Aspirin Ec 81 Mg Tabec PO 09/24/24 08:59 81 mg QDAY BOBBY Administration Atorvastatin Calcium 80 mg 08/25/24 21:00 08/27/24 20:18 Atorvastatin Calcium 20 Mg Tablet PO 09/24/24 20:59 80 mg HS BOBBY Administration Clopidogrel Bisulfate 75 mg 08/25/24 18:00 08/28/24 09:58 Clopidogrel Bisulfate 75 Mg Tablet PO 09/24/24 17:59 75 mg QDAY BOBBY Administration Dextrose 25 ml 08/25/24 01:41 Dextrose 50%-Water Inj 50 Ml Syringe IV 09/24/24 01:40 Q15MIN PRN BG 50-70 responsive npo pt Dextrose 50 ml 08/25/24 01:41 Dextrose 50%-Water Inj 50 Ml Syringe IV 09/24/24 01:40 Q15MIN PRN BG <50 OR BG <70 & pt unresponsive Glucagon 1 mg 08/25/24 01:41 Glucagon Inj 1 Mg Vial IM Q15MIN PRN BG <70, and no IV access Insulin Human Lispro 0 unit 08/25/24 07:30 08/28/24 11:46 Insulin Lispro (Admelog) 1 Unit/0.01 Ml Unit SC 09/24/24 07:29 Not Given AC BOBBY Protocol Lisinopril 40 mg 08/25/24 09:00 08/28/24 09:58 Lisinopril 20 Mg Tablet PO 09/24/24 08:59 40 mg QDAY BOBBY Administration Pantoprazole Sodium 40 mg 08/25/24 09:00 08/28/24 09:59 Pantoprazole Inj 40 Mg Vial IV 09/24/24 08:59 40 mg QDAY BOBBY Administration Polyethylene Glycol 17 gm 08/25/24 03:16 Polyethylene Glycol 17 Gm Packet PO 09/24/24 08:59 QDAY PRN constipation Plan Gloria Taylor is 84-year-old female with a previous medical history of hypertension, diabetes, hyperlipidemia, GERD who came in on 08/24/24 due to dizziness, headache, inability to ambulate on her own, inability to stand. Patient was admitted for stroke rule out. #Acute CVA Patient is out of the time window for thrombolysis. Reports feeling dizzy and headache. Symptoms could be indicative of vertebrobasilar stroke. CT head showed multiple right cerebellar hemisphere infarcts. 08/25/24: Initial NIHSS is 0. MRI brain Large acute infarcts in the right cerebellar hemisphere. CTA head neck showed 80% plus stenosis right posterior cerebral artery, junction P1 P2 segments A1c 6.2, Lipid panel normal, TSH 1.35 Echo bubble negative. - Plavix 75 mg daily, aspirin, atorvastatin 80 mg daily - continue PT - Neuro checks q4hr - Telemetry -patient to follow up with vascular surgery after discharge for evaluation of possible endarterectomy #Hypertension #Hyperlipidemia Plan: - Resumed home lisinopril - Atorvastatin 80 mg qday #Non-insulin dependent Type 2 diabetes, well controlled A1c 6.2, patient takes metformin 500mg BID -blood sugar checks AC - Insulin sliding scale - Hypoglycemia protocol #History of GERD - Pantoprazole 40 mg qday Health maintenance: FEN: low carb diet DVT prophylaxis: Heparin sc GI prophylaxis: Pantoprazole 40 mg Dispo: dc pending SNF auth CODE STATUS: Full code The patient's management plan was discussed with my attending physician Dr. Talbot. Rosa Flynn, PGY-1 Attending Provider Attestation/Addendum I have discussed and was present for the essential components of the history, physical examination, diagnosis, and treatment plan with the resident. I agree with the patient's care as documented by the resident and amended herein by me. Juan Talbot DO. Patient seen and evaluated this AM. No acute events overnight, patient doing very well. Patient will be discharged to SNF however insurance authorization is pending. aircraft layout worker will keep us informed, will discharge once we have the authorization Although this document has been carefully reviewed, there may still be some phonetic and other typographical errors. These errors are purely grammatical due to imperfections in the software program and should not be construed in any way to compromise the substance of the patient's medical care during this visit.
--- NOTE | 2024-08-27 17:05 | PD.RESDS ---
Planned Discharge Date 08/27/24 DS: Providers Provider Date of admission: 08/25/24 01:37 Primary care physician: Jan Valadez PA-C Admitting Provider: Brian Mckeon MD Attending Provider on Admission: Zachery Talbot DO Consults: 08/25/24 02:47 Consult to Neurology / Tele-Neurology Stat Comment: stroke rule out Consulting Provider: Mauro Fuller 08/25/24 09:30 Referral - STORE OPERATIONS SPECIALIST Returned Materials Inspector Routine Comment: lorene Subramanian 08/25/24 13:26 Referral Physical Therapy Stat Comment: Physician Instructions: Attending Provider on DC: Zachery Talbot DO Discharging Provider: Zachery Talbot DO DS: Diagnosis Problem List Completed Was Problem List Reviewed/Reconciled?: Yes Hospital Course Hospital Course Hospital course: Reason for hospitalization: acute CVA Gloria Taylor is 84 yr female with PMH of HTN, HLD, DM, GERD who presented to [facility] ED on 08/25/24 due to dizziness, headache, inability to ambulate on her own, inability to stand. She denied any falls and traumas to the head. Family at bedside stated that patient was discharged from [facility] ED on weekend of 08/21 after she had presented with similar symptoms. She was treated symptomatically and discharged from the ED. Patient was admitted for workup of CVA after presenting to [facility]. 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 CBC, CMP, glucose, troponins, UA unremarkable. Further workup for stroke including MRI of head showed large acute infarcts in the right cerebellar hemisphere. CTA of head and neck positive for 80% stenosis of right posterior cerebral artery. Echo with bubble study was negative for PFO, EF 50-55%. In-house neurology Dr. Fuller was consulted. Patient was started on aspirin, Plavix, atorvastatin. 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 Patient will be going to SNF for additional PT. Patient now in stable condition and ready for discharge. Recommendations were given as below. Discharge Recommendations: Resume previous medications. Continue taking atorvastatin 80 mg daily, clopidogrel 75 mg daily, aspirin 81 mg daily for treatment of stroke. Follow-up with neurology in 1-2 weeks. Follow-up with PCP in 1-2 weeks. Please obtain referral for vascular surgeon from your PCP. You will need evaluation of neck arterial stenosis. Return to ED if symptoms worsen. Hospital Diagnoses: #Acute CVA #Hypertension #Hyperlipidemia #Non-insulin dependent Type 2 diabetes, well controlled #History of GERD The patient's management plan was discussed with my attending physician Dr. Talbot. Rosa Flynn MD, PGY-1 Time Spent with Patient Time attestation: Total time spent providing and/or coordinating discharge services: Time spent: Greater than 30 minutes Home Health Home Health Referral Orders: 08/26/24 15:36 Home Health Referral Routine Reason For Exam: debility Home-Bound The patient must either because of illness or injury, need the aid of supportive devices such as crutches, canes, wheelchairs, and walkers; the use of special transportation; or the assistance of another person in order to leave their place of residence; OR have a condition such that leaving his or her home is medically contraindicated. In addition, the patient also meets the following criteria: patient is normally unable to leave the home and leaving home requires considerable taxing effort. Addendum to Home Health Certification Practitioner's Certification: I certify that the patient has been under my care in the hospital and the care of attending physician (see below). We had a [id number] encounter on (see date below). My clinical findings indicate that the patient is home bound per the above criteria and the Home Health Services noted in these orders are medically necessary. The primary reason for the [id number] encounter is related to the fact that the patient requires home health services. Date Certifying [id number]-ym-[id number] Physician Encounter: 08/25/24 Physician's Name who will Assume Oversight for Services: Jan Valadez Physician's Phone No.who will Assume Oversight for Service: ASSISTANT TO THE CEO - Community Resources: No PT to Evaluate: Yes PT to evaluate and provide a treatmnet plan to increase patient's mobility and strength. Wound Care: No IV Therapy: No Discontinue PICC Line Once Treatment Complete: No RN Safety Evaluation: Yes RN to evaluate and create a plan of care that will produce positive outcomes. Palliative Treatment: No Palliative treatment and evaluate the need for hospice. Home Health Aide - Personal Care: No Home Health Aide to assist with any ADL's. Exam Vital Signs Temp Pulse Resp BP Pulse Ox O2 Del Method 97.5 F 86 18 151/76 H 96 Room Air 08/27/24 11:27 08/27/24 12:00 08/27/24 11:27 08/27/24 11:27 08/27/24 11:27 08/27/24 11:27 Narrative Exam General: Elderly female, easily arousable, no distress HEENT: Normocephalic, atraumatic, mucous membranes moist, facial movements in tact. Heart: Regular rate and rhythm, no murmurs. Lungs: Clear to auscultation with no wheezing or crackles. Abdomen: Soft, nondistended, nontender, positive bowel sounds. ?No guarding or rebound tenderness. Neurologic: Alert and oriented x3, no new gross neurological deficit, and patient able to move all 4 extremities. Strength on bilateral upper lower extremities 5/5 Extremities: No edema. Skin: No rash or ecchymoses. Discharge Plan Plan Patient Disposition: Home w/HOME HEALTH Disposition Comment: Admitted to Dr. Mckeon Patient condition on transfer: Stable Prescriptions/Referrals Prescriptions/Med Rec: New atorvastatin 20 mg Tablet 80 mg PO HS 30 Days Qty: 120 0RF clopidogrel 75 mg Tablet 75 mg PO QDAY 30 Days Qty: 30 0RF Continued omeprazole 40 mg capsule,delayed release(DR/EC) 20 mg PO BID lisinopril 40 mg tablet 40 mg PO QDAY metformin 500 mg Tablet 500 mg PO BID amlodipine 2.5 mg Tablet 2.5 mg PO QDAY aspirin 81 mg Tablet,Delayed Release (Dr/Ec) 81 mg PO QDAY famotidine 20 mg Tablet 20 mg PO QDAY metoprolol succinate 50 mg Capsule,Sprinkle,Er 24hr 50 mg PO QDAY Referrals: Jan Valadez PA-C [Primary Care Provider] - Patient/Caregiver Discharge Instructions Other Discharge Activity Instructions:: Resume previous medications. Continue taking atorvastatin 80 mg daily, clopidogrel 75 mg daily, aspirin 81 mg daily for treatment of stroke. Follow-up with neurology in 1-2 weeks. Follow-up with PCP in 1-2 weeks. Please obtain referral for vascular surgeon from your PCP. You will need evaluation of neck arterial stenosis. Return to ED if symptoms worsen. Education Materials: Carotid Artery Problems: Stroke, Hypertension Stroke Link, Discharge Instructions for Stroke, Carotid Artery Disease Print Language: Icelandic Stand Alone Forms: Kathi Award Info., Patient Portal Info Letter Discharge Order Discharge Orders: Discharge (Routine); Ordered 08/27/24 Ordered By: Rosa lFynn Quality Discharge Quality Measures VTE prophylaxis Attestestation MD Attestation Patient not discharged today as expected, insurance authorization for SNF still pending
[2024-08-27] MEDS: INSULIN LISPRO (AdmeLOG) 1 UNIT/0.01 ML UNIT SC (17:08)
[2024-08-27] MEDS: ACETAMINOPHEN 325 MG TABLET 650 MG PO (20:18)
[2024-08-27] MEDS: ATORVASTATIN CALCIUM 20 MG TABLET 80 MG PO (20:18)
[2024-08-28] VITALS (10 sets, daily range): BP systolic 125–159; BP diastolic 58–96; PULSE 74–83; RESP 15–17; TEMP 36.3–37.2; O2SAT 93–99; BMI 25.1
--- NOTE | 2024-08-28 07:48 | PC.NURSE ---
Per MD Flynn [facility] is cancelled for pt. wharf laborer notified.
--- NOTE | 2024-08-28 08:43 | PC.SS ---
Follow up note: SS was informed by Janette at [facility] insurance authorization is pending.
--- NOTE | 2024-08-28 08:52 | PC.NURSE ---
Spoke with Katie BENITEZ to confirm about the [facility] medical billing manager said she would call the MD to confirm and give me a call back with an update RN called me back to confirm that [facility] has been canceled
[2024-08-28] MEDS: ACETAMINOPHEN 325 MG TABLET 650 MG PO ×2 (09:58→17:08)
[2024-08-28] MEDS: amLODIPine BESYLATE 2.5 MG TABLET PO (09:58)
[2024-08-28] MEDS: Lisinopril 20 MG TABLET 40 MG PO (09:58)
[2024-08-28] MEDS: CLOPIDOGREL BISULFATE 75 MG TABLET PO (09:58)
[2024-08-28] MEDS: ASPIRIN EC 81 MG TABEC PO (09:58)
[2024-08-28] MEDS: PANTOPRAZOLE INJ 40 MG VIAL IV (09:59)
--- NOTE | 2024-08-28 15:06 | ESPR_ITS ---
Documentation for date of: 08/28/24 Subjective Subjective Interval history: No overnight acute events Today at bedside patient is AO x 3, respond to questionably denied any acute complaints only when she stands up that she feels water sensation on her head denies no episode of vomiting. Patient has been working with physical therapy. Per neurology standpoint patient can be discharged to SNF with atorvastatin Plavix and aspirin and continue physical therapy and follow-up with neurology 2 weeks upon discharge. Pending insurance authorization for SNF placement. Exam Vital Signs Temp Pulse Resp BP Pulse Ox O2 Del Method 98.9 F 83 15 159/96 H 97 Room Air 08/28/24 12:00 08/28/24 12:00 08/28/24 12:00 08/28/24 12:00 08/28/24 12:08/28/24 04:00 Narrative Exam General: No acute distress, well appearing, alert, interactive. HEENT: NC/AT, PERRL, EOMI, Good conjugate gaze, moist mucous membranes, oropharynx clear. Neck: Supple, No masses, No adenopathy, carotid pulse 2+ bilaterally without bruits, No JVD, normal range of motion. Chest: Symmetrical, atraumatic, and with equal expansion , Nontender on palpation no deformity and no crepitus. CVS: S1 and S2 present, Regular rate and rhythm, No murmurs, rubs or gallops perceived during auscultation. Lungs: Normal respiratory effort, CTAB, no wheezing, rhonchi or rales perceived during auscultation, No intercostal or subcostal retraction. Abdomen : Soft, no tenderness to palpation, no guarding ,no rebound, +BS, no organomegaly. Extremities: No edema, warm well perfused, normal tone and ROM, strength and sensation intact, cap refill less than 2, +2 dp equal bilaterally, able to move all 4 extremities spontaneously. Skin: Intact, no rashes, no lesions, no erythema or jaundice noted Neuro: AOx3, cranial nerves II through XII intact, reflex symmetric and sensation normal, no focal neurologic deficits noted, no dysmetria noted in [id number] test, gait mildly ataxic, GCS 15, able to move all 4 extremities spontaneously, strength on bilateral upper lower extremities 5/5 Psych: Appropriate mood and affect. Objective Labs 08/27/24 04:21 08/27/24 04:21 Quality Measures Quality Measures VTE prophylaxis Advance care planning discussed with:: child Assessment & Plan Assessment Current Active Medications: Generic Name Dose Route Start Last Admin Trade Name Lalitha PRN Reason Stop Dose Admin Acetaminophen 650 mg 08/27/24 20:12 08/28/24 09:58 Acetaminophen 325 Mg Tablet PO 09/25/24 16:01 650 mg Q4HR PRN Administration Fever >100.3 or pain 1-3 Amlodipine Besylate 2.5 mg 08/27/24 08:35 08/28/24 09:58 Amlodipine Besylate 2.5 Mg Tablet PO 09/26/24 08:34 2.5 mg QDAY BOBBY Administration Aspirin 81 mg 08/25/24 09:00 08/28/24 09:58 Aspirin Ec 81 Mg Tabec PO 09/24/24 08:59 81 mg QDAY BOBBY Administration Atorvastatin Calcium 80 mg 08/25/24 21:00 08/27/24 20:18 Atorvastatin Calcium 20 Mg Tablet PO 09/24/24 20:59 80 mg HS BOBBY Administration Clopidogrel Bisulfate 75 mg 08/25/24 18:00 08/28/24 09:58 Clopidogrel Bisulfate 75 Mg Tablet PO 09/24/24 17:59 75 mg QDAY BOBBY Administration Dextrose 25 ml 08/25/24 01:41 Dextrose 50%-Water Inj 50 Ml Syringe IV 09/24/24 01:40 Q15MIN PRN BG 50-70 responsive npo pt Dextrose 50 ml 08/25/24 01:41 Dextrose 50%-Water Inj 50 Ml Syringe IV 09/24/24 01:40 Q15MIN PRN BG <50 OR BG <70 & pt unresponsive Glucagon 1 mg 08/25/24 01:41 Glucagon Inj 1 Mg Vial IM Q15MIN PRN BG <70, and no IV access Insulin Human Lispro 0 unit 08/25/24 07:30 08/28/24 11:46 Insulin Lispro (Admelog) 1 Unit/0.01 Ml Unit SC 09/24/24 07:29 Not Given AC [facility] Protocol Lisinopril 40 mg 08/25/24 09:00 08/28/24 09:58 Lisinopril 20 Mg Tablet PO 09/24/24 08:59 40 mg QDAY BOBBY Administration Pantoprazole Sodium 40 mg 08/25/24 09:00 08/28/24 09:59 Pantoprazole Inj 40 Mg Vial IV 09/24/24 08:59 40 mg QDAY BOBBY Administration Polyethylene Glycol 17 gm 08/25/24 03:16 Polyethylene Glycol 17 Gm Packet PO 09/24/24 08:59 QDAY PRN constipation Plan #Acute large right cerebellar infarct Patient endorses dizziness and ataxia associated to nausea and vomiting upon presentation. Head CT showed old upper infarct in the right cerebral large hemisphere, negative for acute hemorrhage, midline shift or mass effect. 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 Carotid Doppler ultrasound right and left internal carotids with 0-10% stenosis. Brain MRI showed large acute infarct in the right cerebellar hemisphere. Per case management family members want to decide possible SNF but they have not taken a decision yet. Per physical therapy patient will benefit to be discharged to SNF for home health with PT Echocardiogram bubble study was negative for PFO or ASD Plan: Per neurology standpoint patient can be discharged - Continue atorvastatin 80 mg qday ? Continue aspirin 81 mg p.o. daily ? Continue Plavix 75 mg p.o. daily ? Blood pressure control ? Continue physical therapy #Hypertension #Hyperlipidemia #Type 2 diabetes #History of GERD ? Continue management per primary team Patient discussed with my attending Dr Alina Thompson MD PGY-3 Disclaimer: Despite multiple revisions, due to the dictation software being used, the document bellow may not be free of grammatical errors including phonetic/typographic errors. However, this does not deter from our commitment to providing health care in the patient's best interest in mind. Attending Provider Attestation/Addendum Waiting for placementHave seen and examined the patient at the bedside and I agree with the resident's findings, assessment and plan of care. Continue with the current management. Waiting for placement
[2024-08-28] MEDS: ATORVASTATIN CALCIUM 20 MG TABLET 80 MG PO (20:08)
[2024-08-29] VITALS: BP 115/74; PULSE 77; PULSE 79; RESP 17; TEMP 36.6; O2SAT 97
[2024-08-29 04:00] VITALS: BP 122/79; PULSE 72; PULSE 80; RESP 15; TEMP 36.1; O2SAT 98
[2024-08-29 06:00] VITALS: BMI 25.1
--- NOTE | 2024-08-29 07:05 | PC.CC ---
Patient entered into [facility], pt may be going to snf
[2024-08-29 08:00] VITALS: BP 155/74; PULSE 82; PULSE 83; RESP 18; TEMP 36.2; O2SAT 97
[2024-08-29 08:15] VITALS: BP 155/74; PULSE 83
[2024-08-29] MEDS: Lisinopril 20 MG TABLET 40 MG PO (08:15)
[2024-08-29] MEDS: amLODIPine BESYLATE 2.5 MG TABLET PO (08:15)
[2024-08-29] MEDS: ASPIRIN EC 81 MG TABEC PO (08:15)
[2024-08-29] MEDS: PANTOPRAZOLE INJ 40 MG VIAL IV (08:15)
[2024-08-29] MEDS: CLOPIDOGREL BISULFATE 75 MG TABLET PO (08:16)
--- NOTE | 2024-08-29 08:49 | PC.SS ---
[facility]29/24 15:51: SS informed [facility] and patient's daughter Juana Jimenez patient to discharge to [facility] AT 1700 [address] ambulance. [facility]MM[facility] Do also informed. Addendum entered by Ana Rakel 08/29/24 15:48: SS received call from [facility], ETA for transportation 1700. Addendum [facility] by [facility] 08/29/24 15:22: [facility] contacted to arrange transportation, Reservation #[id number] provided. PCS form for transport submitted via [facility] to [facility], pending ETA for transportation. Addendum [facility] by [facility] 08/29/24 12:21: SS contacted [facility] to determine if [facility]. EMMANUEL Do stated patient is unable to ambulate and has not ambulated while under her care. SS contacted [facility] Resident Dr. Vallecillo to request updated discharge orders to begin transportation setup, pending update. Original Note: SS informed by [facility] she has obtained insurance authorization and can accept patient today to their facility.
[2024-08-29 12:00] VITALS: BP 148/66; PULSE 82; PULSE 84; RESP 18; TEMP 36.6; O2SAT 96
[2024-08-29 16:00] VITALS: BP 147/71; PULSE 83; RESP 18; TEMP 36.9; O2SAT 95
--- NOTE | 2024-08-29 16:34 | ESDS_ITS ---
Planned Discharge Date 08/29/24 DS: Providers Provider Date of admission: 08/25/24 01:37 Primary care physician: Jan Valadez PA-C Admitting Provider: Brian Mckeon MD Attending Provider on Admission: Zachery Talbot DO Consults: 08/25/24 02:47 Consult to Neurology / Tele-Neurology Stat Comment: stroke rule out Consulting Provider: Mauro Fuller 08/25/24 09:30 Referral - [employer] Transcription Coordinator Routine Comment: lorene Subramanian 08/25/24 13:26 Referral Physical Therapy Stat Comment: Physician Instructions: Attending Provider on DC: Rosa Flynn MD Discharging Provider: Rosa Flynn MD DS: Diagnosis Problem List Completed Was Problem List Reviewed/Reconciled?: Yes Hospital Course Hospital Course Hospital course: Reason for hospitalization: acute CVA Gloria Taylor is 84 yr female with PMH of HTN, HLD, DM, GERD who presented to [facility] ED on 08/25/24 due to dizziness, headache, inability to ambulate on her own, inability to stand. She denied any falls and traumas to the head. Family at bedside stated that patient was discharged from [facility] ED on weekend of 08/21 after she had presented with similar symptoms. She was treated symptomatically and discharged from the ED. Patient was admitted for workup of CVA after presenting to [facility]. 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 CBC, CMP, glucose, troponins, UA unremarkable. Further workup for stroke including MRI of head showed large acute infarcts in the right cerebellar hemisphere. CTA of head and neck positive for 80% stenosis of right posterior cerebral artery. Echo with bubble study was negative for PFO, EF 50-55%. In-house neurology Dr. Fuller was consulted. Patient was started on aspirin, Plavix, atorvastatin. Family was informed and encouraged to follow-up with vascular surgeon after discharge for evaluation of possible endarterectomy of right [employer]. Patient will be going to SNF for additional PT. Patient now in stable condition and ready for discharge. Recommendations were given as below. Discharge Recommendations: Resume previous medications. Continue taking atorvastatin 80 mg daily, clopidogrel 75 mg daily, aspirin 81 mg daily for treatment of stroke. Follow-up with neurology in 1-2 weeks. Follow-up with PCP in 1-2 weeks. Please obtain referral for vascular surgeon from your PCP. You will need evaluation of neck arterial stenosis. Return to ED if symptoms worsen. Hospital Diagnoses: #Acute CVA #Hypertension #Hyperlipidemia #Non-insulin dependent Type 2 diabetes, well controlled #History of GERD The patient's management plan was discussed with my attending physician Dr. Talbot. Rosa Flynn MD, PGY-1 Time Spent with Patient Time attestation: Total time spent providing and/or coordinating discharge services: Time spent: Greater than 30 minutes Exam Vital Signs Temp Pulse Resp BP Pulse Ox O2 Del Method 98.5 F 83 18 147/71 H 95 Room Air 08/29/24 16:00 08/29/24 16:08/29/24 16:08/29/24 16:08/29/24 16:08/29/24 12:00 Narrative Exam General: Elderly female, easily arousable, no distress HEENT: Normocephalic, atraumatic, mucous membranes moist, facial movements in tact. Heart: Regular rate and rhythm, no murmurs. Lungs: Clear to auscultation with no wheezing or crackles. Abdomen: Soft, nondistended, nontender, positive bowel sounds. ?No guarding or rebound tenderness. Neurologic: Alert and oriented x3, no new gross neurological deficit, and patient able to move all 4 extremities. Strength on bilateral upper lower extremities 5/5 Extremities: No edema. Skin: No rash or ecchymoses. Discharge Plan Plan [place] [facility] [facility] [place] Patient condition on transfer: Stable Prescriptions/Referrals Prescriptions/Med Rec: New atorvastatin 20 mg Tablet 80 mg PO HS 30 Days Qty: 120 0RF clopidogrel 75 mg Tablet 75 mg PO QDAY 30 Days Qty: 30 0RF Continued omeprazole 40 mg capsule,delayed release(DR/EC) 20 mg PO BID lisinopril 40 mg tablet 40 mg PO QDAY metformin 500 mg Tablet 500 mg PO BID amlodipine 2.5 mg Tablet 2.5 mg PO QDAY aspirin 81 mg Tablet,Delayed Release (Dr/Ec) 81 mg PO QDAY famotidine 20 mg Tablet 20 mg PO QDAY metoprolol succinate 50 mg Capsule,Sprinkle,Er 24hr 50 mg PO QDAY Referrals: Jan Valadez PA-C [Primary Care Provider] - Patient/Caregiver Discharge Instructions Other Discharge Activity Instructions:: Resume previous medications. Continue taking atorvastatin 80 mg daily, clopidogrel 75 mg daily, aspirin 81 mg daily for treatment of stroke. Follow-up with neurology in 1-2 weeks. Follow-up with PCP in 1-2 weeks. Please obtain referral for vascular surgeon from your PCP. You will need evaluation of neck arterial stenosis. Return to ED if symptoms worsen. Education Materials: Carotid Artery Problems: Stroke, Hypertension Stroke Link, Discharge Instructions for Stroke, Carotid Artery Disease Print Language: Welsh Stand Alone Forms: Kathi Award Info., Patient Portal Info Letter Discharge Order Discharge Orders: Discharge (Routine); Ordered 08/29/24 Ordered By: Jasper Vallecillo Quality Discharge Quality Measures VTE prophylaxis Attestestation MD Attestation I have discussed and was present for the essential components of the discharge history, physical examination, diagnosis, and discharge treatment plan with the resident. I agree with the patient's discharge care as documented by the resident and amended herein by me. Juan Talbot, DO. The patient understood all discharge instructions, all questions were answered satisfactorily. The patient was instructed to return to the Emergency Department is symptoms worsened or persisted. They were stable, afebrile, tolerating p.o. intake and ambulatory at time of discharge to SNF. Patient will be discharged on aspirin, Plavix and statin, see above. All questions were answered satisfactorily. Although this document has been carefully reviewed, there may still be some phonetic and other typographical errors. These errors are purely grammatical due to imperfections in the software program and should not be construed in any way to compromise the substance of the patient's medical care during this visit.
--- NOTE | 2024-08-31 10:22 | PC.ADMIT ---
pt is discharged to [facility], HH referral is canceled.
--- NOTE | 2024-08-31 10:26 | PC.CC ---
pt is discharged to [facility], HH referral is canceled.
== END 2024-08-29 17:15 | disposition skilled nursing facility (03) | DRG 45 ==
LOC: SERX 08-25 02:58 → SERHOLD 08-25 03:07 → S3NX 08-25 04:00
PROVIDERS: Internal Medicine Cardiovascular Disease; Physician Assistant; Admitting Provider Internal Medicine; Emergency Provider Emergency Medicine; PCP Family Medicine; Visit Provider Student in an Organized Health Care Education/Training Program
PROC: (CPT 93312; principal; 2024-08-28 11:30)
DX: I63.531 Cerebral infarction due to unspecified occlusion or stenosis of right posterior cerebral artery (principal); I10 Essential (primary) hypertension; E11.9 Type 2 diabetes mellitus without complications; E78.5 Hyperlipidemia, unspecified; K21.9 Gastro-esophageal reflux disease without esophagitis; H93.13 Tinnitus, bilateral; Z79.02 Long term (current) use of antithrombotics/antiplatelets; Z79.82 Long term (current) use of aspirin; Z79.84 Long term (current) use of oral hypoglycemic drugs; Z79.899 Other long term (current) drug therapy; Z87.891 Personal history of nicotine dependence
CPT/HCPCS: 36415; 70450; 70496; 70498; 70551; 71046; 80048; 80053; 80061; 81001; 83036; 83615; 83735; 83880; 84443; 84484; 85025; 85610; 85730; 92610; 93005; 93225; 93306; 93880; 96372; 96374; 97162; 99291; A4649; J1643; J1815; J2470; J7030; Q9967; A9270

== ENCOUNTER → 2025-04-01 | Outpatient (CLI) | payer MEDICAID, SELFPAY ==
[2025-04-01 09:51] LABS: C-Reactive Protein < 0.5 mg/dL (0.0-0.9)
[2025-04-01 10:31] LABS: Sed Rate (ESR) 14 mm/hr (0-30)
== END | disposition home or self-care (01) ==
LOC: COPL 08:59
PROVIDERS: PCP Family Medicine; Referring Provider Psychiatry & Neurology Neurology; Visit Provider Psychiatry & Neurology Neurology
DX: G44.209 Tension-type headache, unspecified, not intractable (principal); Z79.899 Other long term (current) drug therapy
CPT/HCPCS: 36415; 85652; 86140